=== PATIENT | female | born 1980 | race Caucasian/White ===

== ENCOUNTER 2017-11-13 12:59 | Emergency (ER) | payer BC ==
[2017-11-13] MEDS ORDERED: IBUPROFEN IV 600 MG in SODIUM CHLORIDE 0.9% 250 ML IV STA (13:45)
[2017-11-13] MEDS ORDERED: DIPHENOX-ATROP 2.5-0.025 MG 1 EACH TAB PO STA (13:46)
[2017-11-13] MEDS ORDERED: ONDANSETRON 4 MG/2 ML VIAL IVP STA (13:46)
[2017-11-13] MEDS ORDERED: SODIUM CHLORIDE 0.9% 1,000 ML IV ONE (13:47)
--- NOTE | 2017-11-13 13:52 | ED ---
General Adult HPI - General Chief complaint: Fever Stated complaint: Fever Time Seen by Provider: 11/13/17 13:00 Source: patient, RN notes reviewed Mode of arrival: wheelchair Limitations: no limitations - History of Present Illness Initial comments: This is a 37-year-old female presents emergency department stating that this morning at 7:00 she went to work became nauseated went home and started vomiting and has been having diarrhea ever since. Patient states she continues to be nauseous. Patient states she felt warm so she took Tylenol Motrin at home she took Motrin at 9:00 and Tylenol at 12:00. Patient denies any shortness of breath or difficulty breathing. Patient denies any chest pain or palpitations. Patient denies any specific area of abdominal. Patient denies any dysuria hematuria urinary frequency. - Related Data Home Medications Medication Instructions Recorded Confirmed Acetaminophen Tab [Tylenol Tab] 650 mg PO Q6H PRN 11/13/17 11/13/17 Cyclobenzaprine [Flexeril] 10 mg PO TID PRN 11/13/17 11/13/17 HYDROcodone/APAP 7.5-325MG [[place] 0.5 - 1 tab PO DAILY PRN 11/13/17 11/13/17 7.5-325] Ibuprofen [Motrin] 600 mg PO Q8HR PRN 11/13/17 11/13/17 Allergies Allergy/AdvReac Type Severity Reaction Status Date / Time No Known Allergies Allergy Verified 11/13/17 13:35 Review of Systems ROS Statement: Those systems with pertinent positive or pertinent negative responses have been documented in the HPI. ROS Other: All systems not noted in ROS Statement are negative. Past Medical History Past Medical History: Hypertension History of Any Multi-Drug Resistant Organisms: None Reported Past Surgical History: Bariatric Surgery Additional Past Surgical History / Comment(s): gastric sleeve 2013 Past Psychological History: No Psychological Hx Reported Smoking Status: Never smoker Past Alcohol Use History: None Reported Past Drug Use History: None Reported General Exam - General Exam Comments Initial Comments: GENERAL: Patient is well-developed and well-nourished. Patient is nontoxic and well- hydrated and is in mild distress. ENT: Neck is soft and supple. No significant lymphadenopathy is noted. Oropharynx is clear. Moist mucous membranes. Neck has full range of motion without eliciting any pain. EYES: The sclera were anicteric and conjunctiva were pink and moist. Extraocular movements were intact and pupils were equal round and reactive to light. Eyelids were unremarkable. PULMONARY: Unlabored respirations. Good breath sounds bilaterally. No audible rales rhonchi or wheezing was noted. CARDIOVASCULAR: There is a regular rate and rhythm without any murmurs gallops or rubs. ABDOMEN: Soft and nontender with normal bowel sounds. No palpable organomegaly was noted. There is no palpable pulsatile mass. SKIN: Skin is clear with no lesions or rashes and otherwise unremarkable. NEUROLOGIC: Patient is alert and oriented x3. Cranial nerves II through XII are grossly intact. Motor and sensory are also intact. Normal speech, volume and content. Symmetrical smile. MUSCULOSKELETAL: Normal extremities with adequate strength and full range of motion. No lower extremity swelling or edema. No calf tenderness. LYMPHATICS: No significant lymphadenopathy is noted PSYCHIATRIC: Normal psychiatric evaluation. Limitations: no limitations Course Vital Signs 11/13/17 13:05 Temperature 101 F H Pulse Rate 120 H Respiratory 20 Rate Blood Pressure 161/81 O2 Sat by Pulse 94 L Oximetry Medical Decision Making - Medical Decision Making I went back into the room to reevaluate the patient patient stated she was no longer nauseous and had no more diarrhea. Patient states she felt much better had no abdominal pain at this time and she was requesting to go home. Patient was given a liter of fluid and Zofran and Lomotil. - Lab Data Result diagrams: 11/13/17 13:44 11/13/17 13:44 Lab Results 11/13/17 11/13/17 11/13/17 Range/Units 13:44 13:44 14:30 WBC 9.3 (3.8-10.6) k/uL RBC 4.96 (3.80-5.40) m/uL Hgb 13.8 (11.4-16.0) gm/dL Hct 41.1 (34.0-46.0) % MCV 82.9 (80.0-100.0) fL MCH 27.8 (25.0-35.0) pg MCHC 33.6 (31.0-37.0) g/dL RDW 14.0 (11.5-15.5) % Plt Count 250 (150-450) k/uL Neutrophils % 92 % Lymphocytes % 3 % Monocytes % 3 % Eosinophils % 2 % Basophils % 0 % Neutrophils # 8.6 H (1.3-7.7) k/uL Lymphocytes # 0.2 L (1.0-4.8) k/uL Monocytes # 0.2 (0-1.0) k/uL Eosinophils # 0.2 (0-0.7) k/uL Basophils # 0.0 (0-0.2) k/uL Sodium 138 (137-145) mmol/L Potassium 4.2 (3.5-5.1) mmol/L Chloride 102 (98-107) mmol/L Carbon Dioxide 24 (22-30) mmol/L Anion Gap 12 mmol/L BUN 14 (7-17) mg/dL Creatinine 0.50 L (0.52-1.04) mg/dL Est GFR (CKD-EPI)AfAm >90 (>60 ml/min/1.73 sqM) Est GFR (CKD-EPI)NonAf >90 (>60 ml/min/1.73 sqM) Glucose 124 H (74-99) mg/dL Calcium 8.9 (8.4-10.2) mg/dL Total Bilirubin 0.7 (0.2-1.3) mg/dL AST 25 (14-36) U/L ALT 30 (9-52) U/L Alkaline Phosphatase 78 (38-126) U/L Total Protein 7.0 (6.3-8.2) g/dL Albumin 3.9 (3.5-5.0) g/dL Influenza Type A RNA Not Detected (Not Detectd) Influenza Type B (PCR) Not Detected (Not Detectd) Disposition Clinical Impression: Gastroenteritis Disposition: HOME SELF-CARE Instructions: Gastroenteritis (ED) Referrals: Patrick Fitzgerald MD [Primary Care Provider] - 1-2 days Time of Disposition: 15:39
[2017-11-13 14:08] LABS: Basophils % (A) 0 %; Eosinophils # (A) 0.2 k/uL (0-0.7); Eosinophils % (A) 2 %; HCT 41.1 % (34.0-46.0); HGB 13.8 gm/dL (11.4-16.0); Lymphocytes # (A) 0.2 k/uL (1.0-4.8); Lymphocytes % (A) 3 %; MCH 27.8 pg (25.0-35.0); MCHC 33.6 g/dL (31.0-37.0); MCV 82.9 fL (80.0-100.0); Mean Platelet Volume 6.9; Monocytes # (A) 0.2 k/uL (0-1.0); Monocytes % (A) 3 %; Neutrophils # (A) 8.6 k/uL (1.3-7.7); Neutrophils % (A) 92 %; Platelet Count 250 k/uL (150-450); RBC 4.96 m/uL (3.80-5.40); WBC 9.3 k/uL (3.8-10.6)
[2017-11-13 14:17] LABS: ALT 30 U/L (9-52); AST 25 U/L (14-36); Albumin 3.9 g/dL (3.5-5.0); Alkaline Phosphatase 78 U/L (38-126); Anion Gap 12 mmol/L; Blood Urea Nitrogen 14 mg/dL (7-17); Calcium 8.9 mg/dL (8.4-10.2); Carbon Dioxide 24 mmol/L (22-30); Chloride 102 mmol/L (98-107); Glucose 124 mg/dL (74-99); Potassium 4.2 mmol/L (3.5-5.1); Sodium 138 mmol/L (137-145); Total Bilirubin 0.7 mg/dL (0.2-1.3)
[2017-11-13] MEDS ORDERED: IBUPROFEN 600 MG TAB PO STA (14:18)
[2017-11-13] MEDS ORDERED: ONDANSETRON 4 MG ODT STARTER PACK 2 TAB BTL PO STA (15:40)
[2017-11-13 15:59] VITALS: BP 130/68; PULSE 95; RESP 18; TEMP 98.7
== END 2017-11-13 15:58 | disposition home or self-care (01) ==
LOC: EC 12:59
DX: K52.9 Noninfective gastroenteritis and colitis, unspecified (principal); Z98.84 Bariatric surgery status
CPT/HCPCS: 36415; 80053; 85025; 87502; 99283; 96374; 96361; J2405; S0119

== ENCOUNTER → 2019-01-20 | Outpatient (CLI) | payer BC ==
--- NOTE | 2019-01-20 18:01 | CONS ---
CONSULTATION DATE OF CONSULTATION: 01/20/2019 This patient is a 38-year-old lady who has been evaluated [facility] for obstructive sleep apnea-hypopnea syndrome. HISTORY OF PRESENT ILLNESS/SLEEP-WAKE EVALUATION: Patient was diagnosed with obstructive sleep apnea about 15 years ago in another institution. Since that time, she has been on treatment with CPAP. For those 15 years, the patient had significant changes of weight she had bariatric surgery and lost weight, but then she again gained weight. Fluctuation of her weight has been in the range of 70 to 90 pounds. At present she continues to use her CPAP equipment every night, but she still wakes up from sleep on CPAP and has snoring while using CPAP. Her sleep schedule on working days is from 10 or 11 p.m. to 6 a.m. On weekends it is from 11 or 12 midnight until 8 or 8:30 a.m. No problem with falling asleep. No TV in bedroom. She sleeps in different positions with, as already mentioned, loud snoring, awakenings from sleep up to 5 times with one episode of nocturia. She grinds her teeth and wakes up with a dry mouth. In the morning the patient wakes up tired with difficulties paying attention, falling asleep during the day, having problems with memory, concentration, irritability depression. [place] Sleepiness Scale is 5. PAST MEDICAL HISTORY: 1. Back problem. 2. Neck problem. 3. Asthma. 4. Sinus problems. 5. Sinus headache. 6. Some restriction of nasal breathing. PAST SURGICAL HISTORY: Gastric sleeve in 2014. MEDICATIONS: 1. Zanaflex. 2. Celebrex. 3. Ventolin. SOCIAL HISTORY: Positive for smoking in the past; quit about 20 years ago. Alcohol consumption occasional. FAMILY HISTORY: Hypertension, hyperlipidemia, arthritis, sleep apnea, cancer, diabetes, mental illness. REVIEW OF SYSTEMS: Multiple awakenings from sleep while on treatment with CPAP, tiredness and sleepiness during the day. Patient takes a nap at 3 p.m. No history of hypnagogic hallucinations, sleep paralysis or cataplexy. PHYSICAL EXAMINATION: GENERAL: A pleasant lady without distress. VITAL SIGNS: BP 195/74, HR 72, RR 16, height 5 feet 4 inches, weight 376 pounds. Body mass index 64.5, temperature 98.4, oxygen saturation at room air 97%. HEENT: PERRLA, EOMI. Evaluation of oropharynx showed tongue protrudes midline. Extremely low position of soft palate. Mallampati IV. Restriction of nasal breathing. NECK: Supple. No JVD. Thyroid is not palpable. Wide neck at 17 to 18 inches in circumference. LUNGS: Clear to percussion and to auscultation. Good air exchange. No wheezing or rhonchi. HEART: S1, S2 regular. No murmurs, gallops or rubs. ABDOMEN: Obese. EXTREMITIES: No clubbing or cyanosis. WESTERN PHILOSOPHY PROFESSOR: Awake, alert, and oriented X3. Cranial nerves 2 to 7 intact. There is no fasciculation or atrophy. noted. No focal deficits observed. IMPRESSION: 1. History of obstructive sleep apnea-hypopnea syndrome for 15 years. The patient is on treatment with CPAP but continues to have snoring and multiple awakenings from sleep, extremely low position of soft palate, Mallampati IV, wide neck, restriction of nasal breathing. 2. Morbid obesity with body mass index of 64.5. Fluctuation of weight significant after gastric sleeve, with losing weight and then increasing weight again. 3. Hypertension in the office. 4. Neck problems with pain. 5. Back problems. 6. History of asthma. 7. Status post gastric sleeve in 2014. 8. History of sinus problems with sinus headaches. PLAN: 1. Repeat CPAP titration for evaluation of effective CPAP pressure at the present time. Will fit the patient with a mask. Possibly patient will need a new CPAP unit. 2. Losing weight. 3. Preferable position during sleep on the side. 4. No driving if patient feels any sleepiness. 5. I will see patient for follow-up visit to explain results of testing and following plan. Thank you very much for referring this patient for consultation. Sincerely, Chele Galo MD, PhD, FAASM Diplomat of [employer] [employer] Marketing Support Manager of [facility] [place] MMODL / IJN: [id number] /
== END | disposition home or self-care (01) ==
LOC: SLEEP 15:04
PROVIDERS: ATTEND Internal Medicine
DX: G47.33 Obstructive sleep apnea (adult) (pediatric) (principal); E66.01 Morbid (severe) obesity due to excess calories; I10 Essential (primary) hypertension; M54.2 Cervicalgia; R51 Headache; Z68.44 Body mass index [BMI] 60.0-69.9, adult; Z87.891 Personal history of nicotine dependence; Z87.09 Personal history of other diseases of the respiratory system; Z99.89 Dependence on other enabling machines and devices; Z98.84 Bariatric surgery status; Z79.1 Long term (current) use of non-steroidal anti-inflammatories (NSAID); Z79.899 Other long term (current) drug therapy
CPT/HCPCS: 99211

== ENCOUNTER → 2019-04-18 | Outpatient (CLI) | payer BC ==
--- NOTE | 2019-04-18 13:25 | XR ---
EXAMINATION TYPE: XR chest 2V DATE OF EXAM: 04/18/2019 HISTORY: CHEST PAIN. REFERENCE: NONE. FINDINGS: The heart is mildly enlarged. There is bibasilar atelectasis. There are small, bilateral ef fusions. IMPRESSION: 1. MILD CARDIOMEGALY. 2. BIBASILAR ATELECTASIS. 3. SMALL, BILATERAL EFFUSIONS.
== END | disposition home or self-care (01) ==
LOC: RADXRMAIN 12:11
PROVIDERS: ATTEND Internal Medicine
DX: J98.11 Atelectasis (principal); J90 Pleural effusion, not elsewhere classified; I51.7 Cardiomegaly
CPT/HCPCS: 71046

== ENCOUNTER → 2019-05-01 | Outpatient (CLI) | payer BC ==
--- NOTE | 2019-05-02 08:35 | CT ---
EXAMINATION TYPE: CT chest w con DATE OF EXAM: 05/01/2019 COMPARISON: NONE HISTORY: Chest pain CT DLP: 1204.8 mGycm. Automated Exposure Control for Dose Reduction was Utilized. TECHNIQUE: CT scan of the thorax is performed following with IV Contrast, patient injected with 100 mL of Isovue 300. FINDINGS: LUNGS: There is a masslike consolidation within the right lower lobe measuring 4.9 x 2.9 x 0.3 cm. Th is abuts the hemidiaphragm and pleural surface and contained an internal focus of air within the repr esent an aerated small bronchus. There are few scattered surrounding groundglass opacities. No additi onal pulmonary mass or nodule is seen. Scattered areas of atelectasis are noted. MEDIASTINUM: There are no greater than 1 cm hilar or mediastinal lymph nodes. Heart is mildly enlarge d without pericardial effusion. OTHER: Patient is noted to be status post gastric sleeve. Partially visualized 8 mm nonobstructing le ft renal calculus and 3 mm left renal calculus. Mild degree hepatic steatosis is partially visualized . Spleen is enlarged measuring 14.7 cm in longitudinal dimension. Mild multilevel degenerative change s of the thoracic spine. IMPRESSION: 1. Masslike consolidation of the medial right lower lobe at the lung bases measuring up to 4.9 cm. In ternal focus of air may represent an air bronchogram and therefore this could relate to pneumonia or early cavitary pneumonia. Alternatively neoplastic pulmonary mass is possible. Consideration could be given to PET CT if no clinical symptoms of pneumonia. Follow-up CT after treatment is recommended to ensure resolution if there are clinical symptoms of pneumonia. 2. Incidentally noted splenomegaly, hepatic steatosis, and nonobstructing left renal calculi.
== END | disposition home or self-care (01) ==
LOC: RADCTMAIN 07:58
PROVIDERS: ATTEND Internal Medicine
DX: R07.9 Chest pain, unspecified (principal)
CPT/HCPCS: 71260; Q9967

== ENCOUNTER → 2019-05-06 | Outpatient (CLI) | payer BC ==
--- NOTE | 2019-05-06 19:36 | PN ---
PROGRESS NOTE DATE OF SERVICE: 05/06/2019 This patient is a 38-year-old lady who has been followed in Sleep Center for treatment of obstructive sleep apnea-hypopnea syndrome. Recently the patient had a home sleep apnea test which showed severe sleep apnea, and subsequently the patient received a CPAP unit for treatment of obstructive sleep apnea-hypopnea syndrome. Today the patient came in for follow-up visit. This is her first visit since receiving her new CPAP unit. She likes her CPAP machine. It works well. No snoring with the machine. No significant sleepiness during the day. [place] Sleepiness Scale is 5, which is normal. I checked her CPAP unit. Range of the pressure is 5 to 20, average pressure 11.5. Usage is 29/30 nights for more than 4 hours with average usage 7.0 hours per night. Average pressure is 11.5 cm of water. Leak 6 L/minute, which is perfect. Apnea-hypopnea index is only 0.8, which is absolutely normal and perfect. MEDICATIONS: 1. Zanaflex. 2. Celebrex. 3. Ventolin. PHYSICAL EXAMINATION: GENERAL: A pleasant patient in no distress. VITAL SIGNS: BP 163/94, HR 74, RR 16, weight 376 pounds, temperature 98.5, oxygen saturation at room air 96%. HEENT: PERRLA, EOMI. Evaluation of oropharynx showed tongue protrudes midline. Extremely low position of soft palate. Mallampati IV. NECK: Supple. No JVD. Thyroid is not palpable. LUNGS: Clear to percussion and to auscultation. Good air exchange. No wheezing or rhonchi. HEART: S1, S2 regular. No murmurs, gallops or rubs. ABDOMEN: Obese. EXTREMITIES: No clubbing or cyanosis. ARRANGER ASSEMBLER: Awake, alert, and oriented X3. Cranial nerves 2 to 7 intact. There is no fasciculation or atrophy. noted. No focal deficits observed. IMPRESSION: 1. Severe obstructive sleep apnea-hypopnea syndrome; apnea-hypopnea index 53.7 with oxygen desaturation to 76%. The patient demonstrated 100% compliance with treatment, normalization in respiration on CPAP, benefitting from treatment. 2. Obesity. 3. Hypertension in the office. 4. History of neck problems, hip pain. 5. History of back problems. 6. History of asthma. 7. Status post gastric sleeve in 2014. 8. History of sinus problems. PLAN: 1. Patient will continue to use CPAP equipment every night for the whole night. 2. Losing weight. 3. Sleep hygiene with regular time in bed for at least 7-1/2 to 8 hours. 4. No driving if feeling any sleepiness. 5. I will maintain all necessary prescriptions for CPAP supplies, including mask, tube, filters. 6. Follow-up visit in one year, or earlier if patient has any problems. Thank you very much for allowing me to participate in the management of your patient. Sincerely, Chele Galo MD, PhD, FAASM Diplomat of [place] [employer] [employer] Associate Professor Of [employer] of [facility] [place] MMODL / IJN: [id number] /
== END | disposition home or self-care (01) ==
LOC: SLEEP 16:21
PROVIDERS: ATTEND Internal Medicine
DX: G47.33 Obstructive sleep apnea (adult) (pediatric) (principal); I10 Essential (primary) hypertension; E66.9 Obesity, unspecified; Z79.899 Other long term (current) drug therapy; Z87.09 Personal history of other diseases of the respiratory system; Z98.84 Bariatric surgery status; Z87.39 Personal history of other diseases of the musculoskeletal system and connective tissue; Z99.89 Dependence on other enabling machines and devices

== ENCOUNTER → 2019-07-10 | Outpatient (CLI) | payer BC ==
--- NOTE | 2019-07-12 08:02 | CT ---
EXAMINATION TYPE: CT chest w con DATE OF EXAM: 07/10/2019 COMPARISON: May 01, 2019 HISTORY: Lobar pneumonia CT DLP: 852 mGycm Automated exposure control for dose reduction was used. CONTRAST: CT scan of the chest is performed with IV Contrast, patient injected with 100 ml mL of Isovue 300. FINDINGS: LUNGS: Right lower lobe infiltrate much improved with a small area of residual parenchymal scarring n oted. The lungs are otherwise clear. No nodule or mass seen. No pleural effusion. MEDIASTINUM: There are no greater than 1 cm hilar or mediastinal lymph nodes. No pericardial effusi on is seen. Thoracic aorta is of normal caliber. The heart is not enlarged. UPPER ABDOMEN: No significant abnormality appreciated. OTHER: No additional significant abnormality is seen. IMPRESSION: 1.Right lower lobe infiltrate much improved with a small area of residual parenchymal scarring noted.
== END | disposition home or self-care (01) ==
LOC: RADCTMAIN 09:39
PROVIDERS: ATTEND Internal Medicine Critical Care Medicine
DX: J18.1 Lobar pneumonia, unspecified organism (principal); R91.8 Other nonspecific abnormal finding of lung field
CPT/HCPCS: 71260; Q9967

== ENCOUNTER → 2023-03-03 | Outpatient (CLI) | payer BC ==
--- NOTE | 2023-03-03 15:59 | USB ---
Reason for Exam: Clinical finding. Patient History: Menarche at age 10. Progesterone for 6 months from age 17 until age 17. Risk Values: Yari 5 year model risk: 0.6%. NCI Lifetime model risk: 7.8%. Technique: Method: Targeted. Prior Study Comparison: 09/27/2021 Bilateral Screening Mammogram, [facility]. Findings: The area of palpable concern of both breasts, the axilla of both breasts and the retroareolar of both breasts were scanned. No suspicious cystic areas are evident. There is a hyperdense area measuring approximately 1.4 x 2.0 x 1.1 cm in the subcutaneous tissues 2:00 position 12 cm from the nipple. This correlates with the palpable region and may represent a small lipoma.. Overall Assessment: Benign, BI-RAD 2 Management: Screening Mammogram of both breasts in 1 year. A clinical breast exam by your physician is recommended on an annual basis and results should be correlated with mammographic findings. This exam should not preclude additional follow-up of suspicious palpable abnormalities. Results were given to the patient verbally at the time of exam. Electronically signed and approved by: Jaylan Alston D.O. Radiologis
--- NOTE | 2023-03-03 15:59 | MM ---
Reason for Exam: Clinical finding. Last mammogram was performed 1 year(s) and 6 month(s) ago. Indicated Problems: Lump or thickening of both sides for 2 Month(s). Patient History: Menarche at age 10. Progesterone for 6 months from age 17 until age 17. Risk Values: Yari 5 year model risk: 0.6%. NCI Lifetime model risk: 7.8%. Tissue Density: There are scattered fibroglandular densities. Findings: Analyzed By CAD. Abdomen appears symmetrical and stable. Chronic nodularity is present bilaterally. At the palpable abnormalities medial bilateral breasts, no underlying mammographic abnormality is evident. Ultrasound over these areas can be performed. No suspicious groups of microcalcifications, spiculated or lobular masses, architectural distortion or other secondary signs of malignancy are mammographically apparent. Overall Assessment: Incomplete: need additional imaging evaluation, BI-RAD 0 Management: Diagnostic Breast Ultrasound of both breasts. A negative mammogram report should not preclude additional follow up of suspicious palpable abnormalities. Patient should continue monthly self breast exam. A clinical breast exam by your physician is recommended on an annual basis and results should be correlated with mammographic findings. Electronically signed and approved by: Jaylan Alston D.O. Radiologis
== END | disposition home or self-care (01) ==
LOC: RADMAMWWP 14:22
PROVIDERS: ATTEND Family Medicine
DX: N63.10 Unspecified lump in the right breast, unspecified quadrant (principal)
CPT/HCPCS: 77062; 77066

== ENCOUNTER 2023-10-03 05:23 | Emergency (ER) | payer BC ==
[2023-10-03 05:44] VITALS: TEMP 98.7
--- NOTE | 2023-10-03 06:34 | ED ---
Abdominal Pain HPI - General Source: patient Mode of arrival: wheelchair Limitations: no limitations <Zoe Valle - Last Filed: 10/03/23 06:35> <Jaspal Dailey - Last Filed: 10/03/23 10:15> - General Chief Complaint: Abdominal Pain Stated Complaint: kidney stone Time Seen by Provider: 10/03/23 05:24 - History of Present Illness Initial Comments: Jovon is a pleasant 43-year-old female who presents to the emergency department today for evaluation of pain radiating from her left flank to her left pelvis. Patient reports pain began last night, over the past couple of hours it has been so severe she has had nausea and vomiting secondary to pain. Patient denies any change in her bowel or bladder habits. Last bowel movement was yesterday and was normal in color caliber and consistency. Patient denies any dysuria or obvious hematuria. Patient denies a history of kidney stones. Patient's only previous abdominal surgery is gastric sleeve years ago. Patient has no concern for sexually transmitted infections or as she is not sexually active. (Zoe Valle) - Related Data Home Medications Medication Instructions Recorded Confirmed Acetaminophen Tab [Tylenol Tab] 650 mg PO Q6H PRN 11/13/17 11/13/17 Cyclobenzaprine [Flexeril] 10 mg PO TID PRN 11/13/17 11/13/17 HYDROcodone/APAP 7.5-325MG [[place] 0.5 - 1 tab PO DAILY PRN 11/13/17 11/13/17 7.5-325] Ibuprofen [Motrin] 600 mg PO Q8HR PRN 11/13/17 11/13/17 Previous Rx's Medication Instructions Recorded Ketorolac [Toradol] 10 mg PO Q6HR PRN #15 tab 10/03/23 Metoclopramide HCl [Reglan] 10 mg PO Q6HR PRN #15 tablet 10/03/23 Allergies Allergy/AdvReac Type Severity Reaction Status Date / Time No Known Allergies Allergy Verified 10/03/23 05:33 Review of Systems ROS Other: All systems not noted in ROS Statement are negative. <Zoe Valle - Last Filed: 10/03/23 06:35> ROS Other: All systems not noted in ROS Statement are negative. <Jaspal Dailey - Last Filed: 10/03/23 10:15> ROS Statement: Those systems with pertinent positive or pertinent negative responses have been documented in the HPI. Past Medical History Past Medical History: Hypertension History of Any Multi-Drug Resistant Organisms: None Reported Past Surgical History: Bariatric Surgery Additional Past Surgical History / Comment(s): gastric sleeve 2014 Past Psychological History: Depression Smoking Status: Never smoker Past Alcohol Use History: None Reported Past Drug Use History: None Reported <Zoe Valle - Last Filed: 10/03/23 06:35> General Exam Limitations: no limitations General appearance: obese, other (appears uncomfortable) Eye exam: Present: PERRL Respiratory exam: Absent: respiratory distress Cardiovascular Exam: Present: regular rate GI/Abdominal exam: Present: soft. Absent: tenderness Rectal exam: Present: deferred Extremities exam: Present: normal capillary refill Neurological exam: Present: alert, oriented X3 Psychiatric exam: Present: normal affect, normal mood Skin exam: Present: warm, dry, intact <Zoe Valle - Last Filed: 10/03/23 06:35> Course Vital Signs 10/03/23 10/03/23 05:33 08:50 Temperature 98.7 F Pulse Rate 73 78 Respiratory 20 18 Rate Blood Pressure 155/80 172/93 O2 Sat by Pulse 96 97 Oximetry Medical Decision Making <Zoe Valle - Last Filed: 10/03/23 06:35> - Lab Data Result diagrams: 10/03/23 06:35 10/03/23 06:35 <Jaspal Dailey - Last Filed: 10/03/23 10:15> - Medical Decision Making Was pt. sent in by a medical professional or institution (, PA, MOLD REPAIR TECHNICIAN, urgent care, hospital, or care home...) When possible be specific @ -[No] Did you speak to anyone other than the patient for history (EMS, parent, family, police, friend...)? What history was obtained from this source @ -[No] Did you review nursing and triage notes (agree or disagree)? Why? @ -[I reviewed and agree with nursing and triage notes] Were old charts reviewed (outside hosp., previous admission, EMS record, old EKG, old radiological studies, urgent care reports/EKG's, care home records)? Report findings @ -[No old charts were reviewed] Differential Diagnosis (chest pain, altered mental status, abdominal pain women, abdominal pain men, vaginal bleeding, weakness, fever, dyspnea, syncope, headache, dizziness, GI bleed, back pain, seizure, CVA, palpatations, mental health)? @ -Differential Abdominal Pain Women: Appendicitis, Cholecystitis, diverticulosis, ischemic bowel, pancreatitis, hepatitis, UTI, gastroenteritis, AAA, incarcerated hernia, bowel obstruction, constipation, inflammatory bowel, hepatitis, peptic ulcer disease, splenic infarction, perforated viscus, vulvitis, ovarian torsion, PID, kidney stone, placenta abruption, this is not meant to be an all-inclusive list EKG interpreted by me (3pts min.). @ -[As above] X-rays interpreted by me (1pt min.). @ -[None done] CT interpreted by me (1pt min.). @ -[None done] U/S interpreted by me (1pt. min.). @ -[None done] What testing was considered but not performed or refused? (CT, X-rays, U/S, labs)? Why? @ -[None] What meds were considered but not given or refused? Why? @ -[None] Did you discuss the management of the patient with other professionals (professionals i.e. , PA, MOLD REPAIR TECHNICIAN, lab, RT, psych nurse, high school social studies teacher, tax representative, teacher, code enforcement officer, child support case officer)? Give summary @ -[No] Was smoking cessation discussed for >3mins.? @ -[No] Was critical care preformed (if so, how long)? @ -[No] Were there social determinants of health that impacted care today? How? (Homelessness, low income, unemployed, alcoholism, drug addiction, transportation, low edu. Level, literacy, decrease access to med. care, care home, rehab)? @ -[No] Was there de-escalation of care discussed even if they declined (Discuss DNR or withdrawal of care, Hospice)? DNR status @ -[No] What co-morbidities impacted this encounter? (DM, HTN, Smoking, COPD, CAD, Cancer, CVA, ARF, Chemo, Hep., AIDS, mental health diagnosis, sleep apnea, morbid obesity)? @ -[None] Was patient admitted / discharged? Hospital course, mention meds given and route, prescriptions, significant lab abnormalities, going to OR and other per tinent info. @ -Patient was seen and evaluated, history is obtained from the patient. Physical exam is limited by patient's body habitus, labs and CT imaging were obtained. Patient care was signed out to oncoming physician Dr. Dailey at 7am (Zoe Valle) Patient reevaluated by myself and still has discomfort. Patient provided Reglan and Toradol. Patient again reevaluated and feels much better. Patient is updated on results and need for follow-up. CT scan interpreted by myself shows left ureteral stone with hydro- Diagnosis: Ureterolithiasis, acute (Jaspal Dailey) - Lab Data Lab Results 10/03/23 10/03/23 10/03/23 Range/Units 06:35 06:35 09:08 WBC 12.1 H (3.8-10.6) k/uL RBC 5.07 (3.80-5.40) m/uL Hgb 15.0 (11.4-16.0) gm/dL Hct 44.1 (34.0-46.0) % MCV 86.9 (80.0-100.0) fL MCH 29.5 (25.0-35.0) pg MCHC 34.0 (31.0-37.0) g/dL RDW 13.7 (11.5-15.5) % Plt Count 279 (150-450) k/uL MPV 7.1 Neutrophils % 78 % Lymphocytes % 15 % Monocytes % 4 % Eosinophils % 2 % Basophils % 0 % Neutrophils # 9.4 H (1.3-7.7) k/uL Lymphocytes # 1.8 (1.0-4.8) k/uL Monocytes # 0.5 (0-1.0) k/uL Eosinophils # 0.2 (0-0.7) k/uL Basophils # 0.1 (0-0.2) k/uL Sodium 137 (137-145) mmol/L Potassium 4.0 (3.5-5.1) mmol/L Chloride 103 (98-107) mmol/L Carbon Dioxide 26 (22-30) mmol/L Anion Gap 8 mmol/L BUN 18 H (7-17) mg/dL Creatinine 0.65 (0.52-1.04) mg/dL Est GFR (CKD-EPI)AfAm >90 (>60 ml/min/1.73 sqM) Est GFR (CKD-EPI)NonAf >90 (>60 ml/min/1.73 sqM) Glucose 155 H (74-99) mg/dL Calcium 9.6 (8.4-10.2) mg/dL Total Bilirubin 0.6 (0.2-1.3) mg/dL AST 33 (14-36) U/L ALT 33 (4-34) U/L Alkaline Phosphatase 84 (38-126) U/L Total Protein 7.7 (6.3-8.2) g/dL Albumin 4.4 (3.5-5.0) g/dL Urine Color Yellow Urine Appearance Cloudy H (Clear) Urine pH 5.5 (5.0-8.0) Ur Specific [place] 1.027 (1.001-1.035) Urine Protein Trace H (Negative) Urine Glucose (UA) Negative (Negative) Urine Ketones Negative (Negative) Urine Blood Large H (Negative) Urine Nitrite Negative (Negative) Urine Bilirubin Negative (Negative) Urine Urobilinogen <2.0 (<2.0) mg/dL Ur Leukocyte Esterase Negative (Negative) Urine RBC 63 H (0-5) /hpf Urine WBC 3 (0-5) /hpf Ur Squamous Epith Cells 3 (0-4) /hpf Urine Bacteria Rare H (None) /hpf Urine Mucus Rare H (None) /hpf Disposition <Zoe Valle - Last Filed: 10/03/23 06:35> Is patient prescribed a controlled substance at d/c from ED?: No Time of Disposition: 10:15 <Jaspal Dailey - Last Filed: 10/03/23 10:15> Clinical Impression: Ureterolithiasis Disposition: HOME SELF-CARE Condition: Stable Instructions (If sedation given, give patient instructions): Kidney Stones (ED) Additional Instructions: Please do follow-up with primary care physician in the next day or 2 for recheck . Return for increased pain, fever, vomiting, worsening symptoms or other concerns. Prescriptions have been sent to pharmacy. Prescriptions: Metoclopramide HCl [Reglan] 10 mg PO Q6HR PRN #15 tablet PRN Reason: Nausea Ketorolac [Toradol] 10 mg PO Q6HR PRN #15 tab PRN Reason: Pain Referrals: Anderson Parker DO [Primary Care Provider] - 1-2 days Jorge Mann MD [STAFF PHYSICIAN] - 1-2 days
[2023-10-03] MEDS: ONDANSETRON 4 MG/2 ML VIAL IVP STA (06:41)
[2023-10-03] MEDS: MORPHINE SULFATE 4 MG/ML SYRINGE IVP STA (06:42)
[2023-10-03 06:55] LABS: Basophils # (A) 0.1 k/uL (0-0.2); Basophils % (A) 0 %; Eosinophils # (A) 0.2 k/uL (0-0.7); Eosinophils % (A) 2 %; HCT 44.1 % (34.0-46.0); Lymphocytes # (A) 1.8 k/uL (1.0-4.8); Lymphocytes % (A) 15 %; MCH 29.5 pg (25.0-35.0); MCV 86.9 fL (80.0-100.0); Mean Platelet Volume 7.1; Monocytes # (A) 0.5 k/uL (0-1.0); Monocytes % (A) 4 %; Neutrophils # (A) 9.4 k/uL (1.3-7.7); Neutrophils % (A) 78 %; Platelet Count 279 k/uL (150-450); RBC 5.07 m/uL (3.80-5.40); RDW 13.7 % (11.5-15.5); WBC 12.1 k/uL (3.8-10.6)
[2023-10-03] MEDS: SODIUM CHLORIDE 0.9% 1,000 ML IV STA ×2 (07:01→08:51)
[2023-10-03 07:06] LABS: ALT 33 U/L (4-34); AST 33 U/L (14-36); African American GFR (CKD) >90 (>60 ml/min/1.73 sqM); Albumin 4.4 g/dL (3.5-5.0); Alkaline Phosphatase 84 U/L (38-126); Anion Gap 8 mmol/L; Blood Urea Nitrogen 18 mg/dL (7-17); Calcium 9.6 mg/dL (8.4-10.2); Carbon Dioxide 26 mmol/L (22-30); Chloride 103 mmol/L (98-107); Glucose 155 mg/dL (74-99); Non-African American GFR(CKD) >90 (>60 ml/min/1.73 sqM); Sodium 137 mmol/L (137-145); Total Bilirubin 0.6 mg/dL (0.2-1.3); Total Protein 7.7 g/dL (6.3-8.2)
--- NOTE | 2023-10-03 07:43 | CT ---
EXAMINATION TYPE: CT abdomen pelvis wo con DATE OF EXAM: 10/03/2023 COMPARISON: None HISTORY: Lt flank pain CT DLP: 2745 mGycm Examination of the solid and hollow viscera is limited given the lack of contrast. FINDINGS: LUNG BASES: No evidence for nodule. No evidence for infiltrate. LIVER/GB: Layering small gallstones. No space-occupying hepatic lesion. PANCREAS: No pancreatic mass identified. No inflammatory process seen. SPLEEN: No evidence for splenomegaly. No intrasplenic lesions seen. ADRENALS: No adrenal nodules identified. No evidence for thickening. KIDNEYS: 3 mm left UVJ calculus. Moderate left-sided hydronephrosis. Additional multiple left-sided c alculi seen measuring up to 2.2 cm. Left renal edema and perinephric stranding. The right kidney is u nremarkable. BOWEL: Appendix has a normal appearance. No evidence of bowel obstruction. No inflammatory process. Lymph nodes: No evidence for adenopathy greater than 1 cm. Abdominal aorta: Atheromatous changes seen. No evidence for aneurysm. Genital organs: Mild fullness of the endometrium could be related to patient's cycle. Correlate clini lo. No uterine mass. No ovarian masses. Other: No significant abnormality. IMPRESSION: 3 mm left UVJ calculus. Moderate left-sided hydronephrosis. Additional multiple left-sided calculi se en measuring up to 2.2 cm. Left renal edema and perinephric stranding.
[2023-10-03] MEDS: KETOROLAC 15 MG/ML 1 ML VIAL IVP STA (08:51)
[2023-10-03] MEDS: METOCLOPRAMIDE 5 MG/ML 2 ML VIAL IVP STA (08:56)
[2023-10-03 09:13] VITALS: BP 172/93; PULSE 78; RESP 18
[2023-10-03 09:25] LABS: Appearance,Urine Cloudy (Clear); Bacteria,Urine Rare /hpf; Bilirubin,Urine Negative (Negative); Blood,Urine Large (Negative); Color,Urine Yellow; Glucose,Urine (UA) Negative (Negative); Ketones,Urine Negative (Negative); Leukocyte Esterase,Urine Negative (Negative); Mucus,Urine Rare /hpf; Nitrite,Urine Negative (Negative); PH, Urine 5.5 (5.0-8.0); Protein,Urine Trace (Negative); RBC,Urine 63 /hpf (0-5); Specific Gravity,Urine 1.027 (1.001-1.035); Squamous Epithelial Cell,Urine 3 /hpf (0-4); Urobilinogen,Urine <2.0 mg/dL (<2.0); WBC,Urine 3 /hpf (0-5)
== END 2023-10-03 11:05 | disposition home or self-care (01) ==
LOC: EC 05:23
DX: N13.2 Hydronephrosis with renal and ureteral calculous obstruction (principal); I10 Essential (primary) hypertension; Z86.59 Personal history of other mental and behavioral disorders; Z79.899 Other long term (current) drug therapy
CPT/HCPCS: 36415; 80053; 85025; 81001; 74176; 99284; 96374; 96375 ×3; 96361 ×3; J2270; J2765; J2405; J1885

== ENCOUNTER → 2023-11-20 | Outpatient (CLI) | payer BC ==
[2023-11-20 18:44] LABS: Basophils # (A) 0.04 X 10*3/uL (0.00-0.10); Basophils % (A) 0.4 %; Eosinophils # (A) 0.27 X 10*3/uL (0.04-0.35); Eosinophils % (A) 2.5 %; HCT 45.1 % (37.2-46.3); HGB 14.9 g/dL (12.0-15.0); Lymphocytes # (A) 3.73 X 10*3/uL (0.90-5.00); Lymphocytes % (A) 34.9 %; MCH 29.3 pg (27.0-32.0); MCV 88.6 FL (80.0-97.0); Mean Platelet Volume 9.2 FL (9.5-12.2); Monocytes % (A) 6.5 %; NRBC Per 100 WBC 0 X 10*3/uL (0.00-0.01); Neutrophils # (A) 5.87 X 10*3/uL (1.80-7.70); Neutrophils % (A) 54.9 %; Platelet Count 320 X 10*3/uL (140-440); RBC 5.09 X 10*6/uL (4.10-5.20); RDW 13.5 % (11.5-14.5)
[2023-11-20 18:49] LABS: BUN/Creat Ratio 21.83 Ratio (12.00-20.00); Blood Urea Nitrogen 13.1 mg/dL (9.0-27.0); Calcium 9.7 mg/dL (8.7-10.3); Carbon Dioxide 31.9 mmol/L (21.6-31.8); Chloride 97 mmol/L (96-109); Glucose 99 mg/dL (70-110); Potassium 4.1 mmol/L (3.5-5.5); Sodium 140 mmol/L (135-145)
[2023-11-20 20:11] LABS: Appearance,Urine Clear (Clear); Bilirubin,Urine Negative (Negative); Blood,Urine Negative (Negative); Color,Urine Yellow (Yellow); Ketones,Urine Negative (Negative); Nitrite,Urine Negative (Negative); PH, Urine 5.5; Specific Gravity,Urine 1.011 (1.001-1.030); Urobilinogen,Urine 0.2 E.U./DL
[2023-11-20 20:19] LABS: Bacteria,Urine 2+ (None Seen)
== END | disposition home or self-care (01) ==
LOC: LABPAT 11:30
PROVIDERS: ATTEND Urology
DX: Z01.812 Encounter for preprocedural laboratory examination (principal); N20.0 Calculus of kidney
CPT/HCPCS: 36415; 80048; 81001; 85025; 87086

== ENCOUNTER → 2023-11-22 | Outpatient (CLI) | payer BC | END | disposition home or self-care (01) | LOC: LABPAT 11:00 | PROVIDERS: ATTEND Urology | DX: Z01.818 Encounter for other preprocedural examination (principal) | CPT/HCPCS: 93005 ==

== ENCOUNTER 2023-11-25 07:10 | Day surgery (SDC) | payer BC ==
[2023-11-21 15:31] VITALS: BMI 66.9
[~2023-11-25 07:10] MED LIST: LIDOCAINE 1% (10MG/ML) FOR IV START INTRADERMA PRN; droPERidol 5 MG/2 ML VIAL IVP ONE
[2023-11-25] MEDS: LACTATED RINGERS 1,000 ML IV SCH (08:31)
[2023-11-25] MEDS: DEXAMETHASONE SOD PHOSPHATE 4 MG/ML 1 ML VIAL IV ONE (08:31)
[2023-11-25] MEDS: ONDANSETRON 4 MG/2 ML VIAL IVP ONE (08:32)
[2023-11-25 08:44] LABS: Glucose,Whole Blood 133 mg/dL (70-110)
--- NOTE | 2023-11-25 08:49 | P.HPIHPCON ---
History of Present Illness H&P Date: 11/25/23 Chief Complaint: Left renal stone This is a 42-year-old female with history of elevated left-sided UVJ stone which she has past, also evidence of a 2.2 cm stone that extends from the left lower pole into the renal pelvis. Options of PCNL, ureteroscopy, ESWL, and observation was discussed with her in detail. Risk and benefit and rationale of each approach were discussed. She agreed to proceed with a left-sided ureteroscopy with holmium laser, aware of the risk which include but not limited to bleeding, infection, injury to the ureter. Risk of anesthesia was also discussed. Discussed given the significant stone burden potential this may need to be a staged procedure. Discussed also potential of having residual stone. She understood all the risk and agreed to proceed Consent for Procedure: I have explained the operation/procedure to the patient, including the risks, benefits, side effects, alternative therapies (including not receiving the proposed treatment or service), the likelihood of the patient achieving his/her goals, and potential recuperation problems for the procedure/sedation/analgesia, as well as any blood products, if indicated. I also explained to the patient the risks, benefits and side effects of the alternatives, as well as the risks related to not receiving the proposed procedure, care, treatment, or services. Past Medical History Past Medical History: Hypertension Additional Past Medical History / Comment(s): KIDNEY STONES, PRE DIABETIC, USES C-PAP MACHINE, CHRONIC PAIN History of Any Multi-Drug Resistant Organisms: None Reported Past Surgical History: Bariatric Surgery Additional Past Surgical History / Comment(s): gastric sleeve 2013 Past Anesthesia/Blood Transfusion Reactions: Previous Problems w/ Anesthesia Additional Past Anesthesia/Blood Transfusion Reaction / Comment(s): HEART RATE EXTREMELY LOW POST GASTRIC BYPASS-WAS IN ICU FOR 4 DAYS Smoking Status: Never smoker - Past Family History Mother Family Medical History: Cancer Father Family Medical History: Cancer Medications and Allergies Home Medications Medication Instructions Recorded Confirmed Type ALPRAZolam [Xanax] 0.5 mg PO DAILY PRN 11/21/23 11/25/23 History Albuterol Inhaler [Ventolin Hfa 1 - 2 puff INHALATION Q6H PRN 11/21/23 11/25/23 History Inhaler] Celecoxib [CeleBREX] 200 mg PO DAILY 11/21/23 11/25/23 History Losartan/Hydrochlorothiazide 1 each PO DAILY 11/21/23 11/25/23 History [Hyzaar 100-25 Tablet] Vilazodone HCl [Viibryd] 20 mg PO DAILY 11/21/23 11/25/23 History metFORMIN HCL ER [Glucophage XR] 500 mg PO W/SUPPER 11/21/23 11/25/23 History tiZANidine HCL [Zanaflex] 4 mg PO DAILY PRN 11/21/23 11/25/23 History Loratadine-Pseudoeph 10-240 mg 1 tab PO DAILY 11/25/23 11/25/23 History [Claritin-D 24 Hour] cycloSPORINE 0.05% OPHTH SOLN 1 applicator BOTH EYES Q12H PRN 11/25/23 11/25/23 History [Restasis] Allergies Allergy/AdvReac Type Severity Reaction Status Date / Time perfume Allergy Dyspnea Verified 11/25/23 08:45 adhesive tape AdvReac Rash/Hives Verified 11/25/23 08:45 Surgical - Exam Vital Signs Temp Pulse Resp BP Pulse Ox 97.0 F L 94 20 182/80 96 11/25/23 08:25 11/25/23 08:25 11/25/23 08:25 11/25/23 08:25 11/25/23 08:25 - General no distress, no pain - Eyes normal ocular movement, no pale - ENT normal nares, normal mucosa - Respiratory normal expansion - Abdomen Abdomen: soft, non tender Results - Labs Abnormal Lab Results - Last 24 Hours (Table) 11/25/23 Range/Units 08:43 POC Glucose (mg/dL) 133 H (70-110) mg/dL Assessment and Plan Assessment: OR for left-sided ureteroscopy, manage lithotripsy, stone basketing and stent insertion
[2023-11-25] MEDS: MIDAZOLAM 2 MG/2 ML VIAL IVP ONE (08:50)
[2023-11-25] MEDS ORDERED: SUCCINYLCHOLINE CHLORIDE 200 MG/10 ML VIAL IV ONE (09:16)
[2023-11-25] MEDS ORDERED: PROPOFOL 10 MG/ML 20 ML VIAL IV ONE (09:16)
[2023-11-25] MEDS ORDERED: fentaNYL (PF) 50 MCG/ML 2 ML AMP ONE (09:16)
[2023-11-25] MEDS ORDERED: LIDOCAINE 1% INJ 10MG/ML (20 ML MDV) ONE (09:16)
[2023-11-25] MEDS: ceFAZolin 3 GM in SODIUM CHLORIDE 0.9% 100 ML IVPB PRN (09:22)
[2023-11-25] MEDS: IOPAMIDOL-370 100ML BTL MISCELLANE ONE (09:55)
--- NOTE | 2023-11-25 09:59 | XR ---
EXAMINATION TYPE: XR KUB DATE OF EXAM: 11/25/2023 7:40 AM CLINICAL INDICATION:Female, 43 years old with history of Left Renal Stone N20.0; [facility] COMPARISON: CT 10/03/2023 TECHNIQUE: KUB was obtained. FINDINGS: Calculus or calculus cluster measuring up to 19 mm projects over the lower pole left kidney, similar to previous CT. No other sizable calculi can be seen projecting over the kidneys or anticipated cours e of the ureters or bladder. Unremarkable bowel gas pattern. No acute bony pathology. Mild degenerative changes. IMPRESSION: A 19 mm calculus lower pole left kidney.
[2023-11-25 10:30] LABS: Glucose,Whole Blood 161 mg/dL (70-110)
[2023-11-25 10:37] VITALS: TEMP 98.6
--- NOTE | 2023-11-25 10:49 | P.OP ---
Date of Procedure: 11/25/23 Preoperative Diagnosis: Left renal stone Postoperative Diagnosis: Same Procedure(s) Performed: Cystoscopy, left ureteroscopy, ureteral balloon dilation, retrograde pyelogram and stent insertion Implants: 6 Barb[place] by 26 cm stent in the left ureter Anesthesia: CAROLA Surgeon: Erik Yung Estimated Blood Loss (ml): 5 Pathology: none sent Condition: stable Disposition: PACU Indications for Procedure: This is a 42-year-old female with history of elevated left-sided UVJ stone which she has past, also evidence of a 2.2 cm stone that extends from the left lower pole into the renal pelvis. Options of PCNL, ureteroscopy, ESWL, and observation was discussed with her in detail. Risk and benefit and rationale of each approach were discussed. She agreed to proceed with a left-sided ureteroscopy with holmium laser, aware of the risk which include but not limited to bleeding, infection, injury to the ureter. Risk of anesthesia was also discussed. Discussed given the significant stone burden potential this may need to be a staged procedure. Discussed also potential of having residual stone. She understood all the risk and agreed to proceed Operative Findings: Multiple areas of narrowing along the left ureter Description of Procedure: Patient brought to the operating room, general anesthesia was induced. She was prepped and draped in sterile fashion and placed in dorsolithotomy position. Cystoscopy fitted with a 21 Barb[place] sheath was inserted per urethra cystoscopy was performed which showed no abnormality within the bladder. Attention was then carried to the left ureteral orifice, the left ureter orifice was intubated with a sensor wire, the wire was advanced under fluoroscopy into the kidney. Next a 11-13 Barb[place] access sheath over the wire resistance was met at the distal ureter. Next the ureteral balloon dilator was passed over the wire, and the area of the distal ureter was dilated to 15 Barb[place] under fluoroscopy. At this time the access sheath was readvanced over the wire, I was able to advance the narrowed area and at this point a second narrowed area was encountered in the mid ureter. Next a ureteral balloon dilator was passed over the wire and the mid ureter was dilated on fluoroscopy to 15 Barb[place]. At this time the access sheath was readvanced further past the area of narrowing and into the proximal ureter. At this time the flexible ureteroscope was inserted through the access sheath, at this point there was lara ureteral narrowing of the proximal ureter, I was not able to advance the scope into the kidney, given the multiple narrowed area decision was made to proceed with a stent insertion. Retrograde pyelogram was performed to better delineate the collecting system. Next a sensor wire was advanced through the ureteroscope and the ureteroscope was withdrawn with the wire in place, pullback ureteroscopy was performed which showed no injury to the ureter but there was a ureteral edema throughout the ureter. At this time a ureteral stent was passed over the wire, the proximal curl was visualized on fluoroscopy and the distal curl was visualized using the cystoscope. The bladder was emptied at the end of the case. Patient tolerated procedure well was taken recovery in stable condition
[2023-11-25] MEDS: KETOROLAC 15 MG/ML 1 ML VIAL IVP ONE (10:50)
[2023-11-25] MEDS: HYDROmorphone 0.5 MG/0.5 ML SYRINGE IVP PRN (10:50)
[2023-11-25 11:13] VITALS: RESP 16
--- NOTE | 2023-11-25 12:11 | FL ---
EXAMINATION TYPE: FL urography retrograde Intraoperative/procedural fluoroscopic services were provid ed. Total fluoroscopy time is 2.11 minutes with a total of 8 submitted images to PACS. Please see the operative/procedural note for further details. DAP: 125 Gycm2
[2023-11-25 12:28] VITALS: BP 146/72; PULSE 82
== END 2023-11-25 12:41 | disposition home or self-care (01) ==
LOC: OR 07:10
PROVIDERS: ATTEND Urology
DX: N20.0 Calculus of kidney (principal); G89.18 Other acute postprocedural pain; I10 Essential (primary) hypertension; G47.33 Obstructive sleep apnea (adult) (pediatric); E11.9 Type 2 diabetes mellitus without complications; E66.01 Morbid (severe) obesity due to excess calories; Z68.20 Body mass index [BMI] 20.0-20.9, adult; Z79.899 Other long term (current) drug therapy; Z88.8 Allergy status to other drugs, medicaments and biological substances; Z91.048 Other nonmedicinal substance allergy status; G89.29 Other chronic pain; Z98.890 Other specified postprocedural states; Z79.84 Long term (current) use of oral hypoglycemic drugs
CPT/HCPCS: 81025; 74420; 74018; 52332; 52351; C2625; C1769 ×2; J2250; J0330; J1100; J0690; J2405; J2001; J3010; J1885; J2704; J1170; Q9967

== ENCOUNTER → 2023-12-15 | Outpatient (CLI) | payer BC ==
[2023-12-15 15:31] LABS: HCT 42.9 % (37.2-46.3); HGB 14.2 g/dL (12.0-15.0); MCH 28.7 pg (27.0-32.0); MCHC 33.1 g/dL (32.0-37.0); MCV 86.8 FL (80.0-97.0); Mean Platelet Volume 9.3 FL (9.5-12.2); NRBC Per 100 WBC 0 X 10*3/uL (0.00-0.01); Platelet Count 293 X 10*3/uL (140-440); RBC 4.94 X 10*6/uL (4.10-5.20); RDW 13.7 % (11.5-14.5); WBC 10.79 X 10*3/uL (4.50-10.00)
[2023-12-15 16:08] LABS: BUN/Creat Ratio 20.29 Ratio (12.00-20.00); Blood Urea Nitrogen 14.2 mg/dL (9.0-27.0); Carbon Dioxide 24.3 mmol/L (21.6-31.8); Chloride 98 mmol/L (96-109); Glucose 175 mg/dL (70-110); Potassium 3.9 mmol/L (3.5-5.5); Sodium 138 mmol/L (135-145)
[2023-12-15 16:09] LABS: Calcium 9.5 mg/dL (8.7-10.3)
[2023-12-15 17:31] LABS: Appearance,Urine Cloudy (Clear); Bilirubin,Urine Negative (Negative); Blood,Urine Large (Negative); Color,Urine Yellow (Yellow); Ketones,Urine Negative (Negative); Nitrite,Urine Negative (Negative); Specific Gravity,Urine 1.022 (1.001-1.030); Urobilinogen,Urine 0.2 E.U./DL
[2023-12-15 23:11] LABS: Bacteria,Urine 1+ (None Seen); Uric Acid Crystals,Urine Present (None Seen)
== END | disposition home or self-care (01) ==
LOC: LABWHC1 10:40
PROVIDERS: ATTEND Urology
DX: Z01.812 Encounter for preprocedural laboratory examination (principal); N20.0 Calculus of kidney
CPT/HCPCS: 80048; 81001; 85027; 87086

== ENCOUNTER 2023-12-23 10:09 | Day surgery (SDC) | payer BC ==
--- NOTE | 2023-12-23 09:05 | P.HPIHPCON ---
History of Present Illness H&P Date: 12/23/23 Chief Complaint: Left-sided renal stone This is a 43-year-old female with history of a 2 cm left-sided lower pole renal stone, she is symptomatic from her stone. Discussed with her the most definitive surgery to address her stone would be a PCNL. Discussed given her morbid obesity she is at a higher risk of complications. Discussed the alternative of doing staged ureteroscopy. She did undergo attempted ureteroscopy on November 24, at that time I encountered a narrowing in the ureter and proceeded with stent placement. She presents today for left-sided ureteroscopy with holmium laser. Discussed risk of surgery which includes but not limited to bleeding, infection, injury to the ureter. Risk of anesthesia was also discussed. She understood all the risk and agreed to proceed Consent for Procedure: I have explained the operation/procedure to the patient, including the risks, benefits, side effects, alternative therapies (including not receiving the proposed treatment or service), the likelihood of the patient achieving his/her goals, and potential recuperation problems for the procedure/sedation/analgesia, as well as any blood products, if indicated. I also explained to the patient the risks, benefits and side effects of the alternatives, as well as the risks related to not receiving the proposed procedure, care, treatment, or services. Past Medical History Past Medical History: Hypertension, Sleep Apnea/CPAP/BIPAP Additional Past Medical History / Comment(s): PCOS, kidney stones, uses CPAP, pre-diabetic History of Any Multi-Drug Resistant Organisms: None Reported Past Surgical History: Bariatric Surgery Additional Past Surgical History / Comment(s): gastric sleeve 2013, EGD, ureteral stent placement 11/22 Additional Past Anesthesia/Blood Transfusion Reaction / Comment(s): Bradycardia after gastric sleeve 2013 - in ICU x 4 days post surgery Smoking Status: Never smoker - Past Family History Father Family Medical History: Diabetes Mellitus, Hypertension Brother(s) Family Medical History: Diabetes Mellitus, Hypertension Medications and Allergies Home Medications Medication Instructions Recorded Confirmed Type ALPRAZolam [Xanax] 0.5 mg PO DAILY PRN 11/21/23 12/22/23 History Albuterol Inhaler [Ventolin Hfa 1 - 2 puff INHALATION Q6H PRN 11/21/23 12/22/23 History Inhaler] Celecoxib [CeleBREX] 200 mg PO DAILY 11/21/23 12/22/23 History Losartan/Hydrochlorothiazide 1 each PO QAM 11/21/23 12/22/23 History [Hyzaar 100-25 Tablet] Vilazodone HCl [Viibryd] 20 mg PO QAM 11/21/23 12/22/23 History metFORMIN HCL ER [Glucophage XR] 500 mg PO W/SUPPER 11/21/23 12/22/23 History tiZANidine HCL [Zanaflex] 4 mg PO DAILY PRN 11/21/23 12/22/23 History cycloSPORINE 0.05% OPHTH SOLN 1 applicator BOTH EYES Q12H PRN 11/25/23 12/22/23 History [Restasis] ARIPiprazole [Abilify] 5 mg PO HS 12/22/23 12/22/23 History Montelukast [Singulair] 10 mg PO HS 12/22/23 12/22/23 History Allergies Allergy/AdvReac Type Severity Reaction Status Date / Time perfume Allergy Dyspnea Verified 12/22/23 09:00 adhesive tape AdvReac Rash/Hives Verified 12/22/23 09:00 Surgical - Exam - General no distress, no pain - Eyes normal ocular movement, no pale - Respiratory normal expansion, normal respiratory effort - Abdomen Abdomen: soft, non tender, no distended - Psychiatric oriented to time, oriented to person, oriented to place Assessment and Plan Assessment: OR for left-sided ureteroscopy, holmium laser lithotripsy, stone basketing, stent removal versus exchange
[~2023-12-23 10:09] MED LIST changes: +MIDAZOLAM 2 MG/2 ML VIAL IV PRN; +ONDANSETRON 4 MG/2 ML VIAL IVP ONE; -droPERidol 5 MG/2 ML VIAL IVP ONE
--- NOTE | 2023-12-23 10:50 | XR ---
EXAMINATION TYPE: XR KUB DATE OF EXAM: 12/23/2023 HISTORY: Pain Comparison: None.Single KUB is submitted for interpretation. Findings: Right renal calculi: None Visualized. Right ureteral calculi: None Visualized. Left renal calculi: Calculus overlies the lower pole of the left kidney measuring 1.8 cm. Left ureteral calculi: Double pigtail left-sided ureteral stent is in place. Pelvic calcifications: None Visualized. Bowel gas pattern is unremarkable. No free air. No mass effects. IMPRESSION: 1. As above
[2023-12-23 11:00] LABS: Glucose,Whole Blood 116 mg/dL (70-110)
[2023-12-23] MEDS ORDERED: diphenhydrAMINE 50 MG/ML 1 ML VIAL ONE (11:00)
[2023-12-23] MEDS: diphenhydrAMINE 50 MG/ML 1 ML VIAL IVP ONE (11:02)
[2023-12-23] MEDS: DEXAMETHASONE SOD PHOSPHATE 4 MG/ML 1 ML VIAL IV ONE (11:02)
[2023-12-23] MEDS: LACTATED RINGERS 1,000 ML IV SCH (11:02)
[2023-12-23] MEDS: ONDANSETRON 4 MG/2 ML VIAL ONE (11:02)
[2023-12-23] MEDS: FAMOTIDINE 20 MG/2 ML VIAL IVP ONE (11:20)
[2023-12-23] MEDS: MIDAZOLAM 2 MG/2 ML VIAL IVP ONE ×3 (11:24→11:30)
[2023-12-23] MEDS: ceFAZolin 3 GM in SODIUM CHLORIDE 0.9% 100 ML IVPB PRN (11:46)
[2023-12-23] MEDS ORDERED: LIDOCAINE 1% INJ 10MG/ML (20 ML MDV) ONE (12:04)
[2023-12-23] MEDS ORDERED: fentaNYL (PF) 50 MCG/ML 2 ML AMP ONE (12:04)
[2023-12-23] MEDS ORDERED: PROPOFOL 10 MG/ML 20 ML VIAL IV ONE (12:04)
[2023-12-23] MEDS ORDERED: SUCCINYLCHOLINE CHLORIDE 200 MG/10 ML VIAL IV ONE (12:04)
[2023-12-23 14:50] LABS: Glucose,Whole Blood 144 mg/dL (70-110)
[2023-12-23] MEDS: KETOROLAC 15 MG/ML 1 ML VIAL IVP ONE (14:56)
[2023-12-23 15:00] VITALS: TEMP 97.6
--- NOTE | 2023-12-23 15:01 | P.OP ---
Date of Procedure: 12/23/23 Preoperative Diagnosis: Left renal stone Postoperative Diagnosis: Same Procedure(s) Performed: Cystoscopy, left ureteroscopy, holmium laser lithotripsy, stone basketing and stent insertion Implants: 6 Ecuadorean by 26 cm stent in the left ureter left on a string and taped to the patient thigh Anesthesia: CAROLA Surgeon: Erik Yung Estimated Blood Loss (ml): 10 Pathology: other (left kidney stone) Condition: stable Disposition: PACU Indications for Procedure: This is a 43-year-old female with history of a 2 cm left-sided lower pole renal stone, she is symptomatic from her stone. Discussed with her the most definitive surgery to address her stone would be a PCNL. Discussed given her morbid obesity she is at a higher risk of complications. Discussed the alternative of doing staged ureteroscopy. She did undergo attempted ureteroscopy on November 24, at that time I encountered a narrowing in the ureter and proceeded with stent placement. She presents today for left-sided ureteroscopy with holmium laser. Discussed risk of surgery which includes but not limited to bleeding, infection, injury to the ureter. Risk of anesthesia was also discussed. She understood all the risk and agreed to proceed Operative Findings: Large left-sided lower pole stone, multiple additional stones within the midpole Description of Procedure: Patient brought to the operating room, general anesthesia was induced. She was prepped and draped in sterile fashion and placed in dorsolithotomy position. Cystoscopy fitted with a 21 Ecuadorean sheath was inserted per urethra, cystoscopy was performed which showed no abnormality within the bladder. Attention was then carried to the left ureteral orifice the stent was seen protruding from it, the stent was grasped and removed to the meatus. Next a sensor wire was advanced through the stent and the location of the wire was confirmed to be within the kidney on fluoroscopy. Next a 1214 Ecuadorean access sheath was passed over the wire and into the proximal ureter. Next a flexible ureteroscope was inserted through the access sheath, renoscopy was performed showed a large stone in the lower pole, and multiple smaller stones were seen in the midpole. Stones within the midpole were grasped and removed intact. And the stone within the lower pole was dusted using the holmium laser, sizable stone fragments were removed using the stone basket. Repeat renoscopy showed no sizable stone fragments or injury to the kidney, of note there was significant amount of dust within the kidney secondary to the stone dusting which limited visualization, but on fluoroscopy there was no radiopaque densities seen. At this time pullback ureteroscopy was performed which showed no injury to the ureter or any ureteral stones, as ureteroscope was withdrawn a sensor wire was advanced through. Next a ureteral stent was passed over the wire, the proximal curl visualized on fluoroscopy and the distal curl was visualized using the cystoscope. The stent was left on a string and taped to the patient left thigh. The patient was awakened from anesthesia and taken to recovery in stable condition
[2023-12-23] MEDS: HYDROmorphone 0.5 MG/0.5 ML SYRINGE IVP PRN (15:06)
[2023-12-23] MEDS: ENALAPRILAT 1.25 MG/ML 1 ML VIAL IVP ONE ×2 (15:21→15:31)
--- NOTE | 2023-12-23 15:24 | FL ---
Fluoroscopy History: Left Kidney stone 40 sec Fl 1.25 DAP
[2023-12-23 16:27] VITALS: BP 155/78; PULSE 98; RESP 18
== END 2023-12-23 16:46 | disposition home or self-care (01) ==
LOC: OR 10:09
PROVIDERS: ATTEND Urology
DX: N20.0 Calculus of kidney (principal); I10 Essential (primary) hypertension; G47.33 Obstructive sleep apnea (adult) (pediatric); J45.909 Unspecified asthma, uncomplicated; Z87.442 Personal history of urinary calculi; Z98.84 Bariatric surgery status; Z83.3 Family history of diabetes mellitus; Z82.49 Family history of ischemic heart disease and other diseases of the circulatory system; Z79.51 Long term (current) use of inhaled steroids; Z79.1 Long term (current) use of non-steroidal anti-inflammatories (NSAID); Z79.84 Long term (current) use of oral hypoglycemic drugs; Z79.899 Other long term (current) drug therapy; Z98.890 Other specified postprocedural states; Z91.048 Other nonmedicinal substance allergy status
CPT/HCPCS: 52356; 81025; 82365; 74018; C2625; C1769 ×2; J2250; J0330; J1200; J1100; J0690; J2405; J2001; J3010; J3490; J1885; J2704; J1170

== ENCOUNTER 2023-12-27 17:09 | Inpatient (IN) | payer BC ==
[2023-12-27] MEDS: SODIUM CHLORIDE 0.9% 500 ML 500 ML IV STA (18:18)
[2023-12-27] MEDS: SODIUM CHLORIDE 0.9% 1,000 ML IV STA ×2 (18:18)
[2023-12-27] MEDS: IBUPROFEN 800 MG TAB PO STA (18:21)
[2023-12-27] MEDS: ACETAMINOPHEN TAB 500 MG TAB PO STA (18:21)
[2023-12-27] MEDS: KETOROLAC 15 MG/ML 1 ML VIAL IVP STA (18:21)
[2023-12-27] MEDS: ONDANSETRON 4 MG/2 ML VIAL IVP STA (18:22)
--- NOTE | 2023-12-27 18:34 | ED ---
Fever HPI - General Chief Complaint: Urogenital Stated Complaint: Fever Time Seen by Provider: 12/27/23 17:44 Source: patient, family, RN notes reviewed, old records reviewed Mode of arrival: wheelchair Limitations: no limitations - History of Present Illness Initial Comments: This is a 43-year-old female to the ER today. This patient presents today for evaluation regards to fever. Fever headache back pain body aches body pain kidney pain. Patient recently had ureteral stent removed this was after lithotripsy for significantly large kidney stone. Patient does have a complicated medical history and significant morbid obesity MD Complaint: fever, malaise, weakness -: hour(s) Temperature Source: subjective, oral Context: sick contacts, multiple patients with similar symptoms Associated Symptoms: denies other symptoms Treatments Prior to Arrival: none - Related Data Home Medications Medication Instructions Recorded Confirmed ALPRAZolam [Xanax] 0.5 mg PO DAILY PRN 11/21/23 12/27/23 Albuterol Inhaler [Ventolin Hfa 1 - 2 puff INHALATION Q6H PRN 11/21/23 12/27/23 Inhaler] Celecoxib [CeleBREX] 200 mg PO DAILY PRN 11/21/23 12/27/23 Losartan/Hydrochlorothiazide 1 tab PO DAILY 11/21/23 12/27/23 [Hyzaar 100-25 Tablet] Vilazodone HCl [Viibryd] 20 mg PO DAILY 11/21/23 12/27/23 metFORMIN HCL ER [Glucophage XR] 500 mg PO W/SUPPER 11/21/23 12/27/23 tiZANidine HCL [Zanaflex] 4 mg PO DAILY PRN 11/21/23 12/27/23 cycloSPORINE 0.05% OPHTH SOLN 1 applicator BOTH EYES Q12H PRN 11/25/23 12/27/23 [Restasis] ARIPiprazole [Abilify] 5 mg PO HS 12/22/23 12/27/23 Montelukast [Singulair] 10 mg PO HS 12/22/23 12/27/23 Previous Rx's Medication Instructions Recorded HYDROcodone/APAP 5-325MG [[place] 1 tab PO Q6HR PRN 3 Days #12 tab 12/23/23 5-325] Ketorolac [Toradol] 10 mg PO Q6HR PRN #10 tab 12/23/23 Acetaminophen Tab [Tylenol] 650 mg PO Q6HR PRN tab 12/30/23 Ciprofloxacin HCl [Cipro] 750 mg PO Q12H 10 Days #20 tab 12/30/23 Allergies Allergy/AdvReac Type Severity Reaction Status Date / Time perfume Allergy Dyspnea Verified 12/27/23 19:44 adhesive tape AdvReac Rash/Hives Verified 12/27/23 19:44 Review of Systems ROS Statement: Those systems with pertinent positive or pertinent negative responses have been documented in the HPI. ROS Other: All systems not noted in ROS Statement are negative. Past Medical History Past Medical History: Hypertension Additional Past Medical History / Comment(s): Kidney stones History of Any Multi-Drug Resistant Organisms: None Reported Past Surgical History: Bariatric Surgery Additional Past Surgical History / Comment(s): gastric sleeve 2013, transurethral lithotripsy 12/23/23 Past Psychological History: Depression Smoking Status: Never smoker Past Alcohol Use History: None Reported, Rare Past Drug Use History: None Reported General Exam Limitations: no limitations General appearance: alert, in no apparent distress Head exam: Present: atraumatic, normocephalic, normal inspection Eye exam: Present: normal appearance, PERRL, EOMI. Absent: scleral icterus, conjunctival injection, periorbital swelling ENT exam: Present: normal exam, mucous membranes moist Neck exam: Present: normal inspection. Absent: tenderness, meningismus, lymp hadenopathy Respiratory exam: Present: normal lung sounds bilaterally. Absent: respiratory distress, wheezes, rales, rhonchi, stridor Cardiovascular Exam: Present: regular rate, normal rhythm, normal heart sounds. Absent: systolic murmur, diastolic murmur, rubs, gallop, clicks GI/Abdominal exam: Present: soft, normal bowel sounds. Absent: distended, tenderness, guarding, rebound, rigid Extremities exam: Present: normal inspection, full ROM, normal capillary refill. Absent: tenderness, pedal edema, joint swelling, calf tenderness Back exam: Present: normal inspection Neurological exam: Present: alert, oriented X3, CN II-XII intact Psychiatric exam: Present: normal affect, normal mood Skin exam: Present: warm, dry, intact, normal color. Absent: rash Course Vital Signs 12/27/23 12/27/23 12/27/23 17:22 19:27 21:57 Temperature 102.8 F H 101.4 F H 98.6 F Pulse Rate 98 90 80 Respiratory 18 18 18 Rate Blood Pressure 166/77 129/64 129/68 O2 Sat by Pulse 97 93 L 93 L Oximetry - Reevaluation(s) Reevaluation #1: 12/27/23 18:34 Medical record is reviewed Reevaluation #2: 12/27/23 18:34 Patient symptoms are improving Reevaluation #3: 12/27/23 18:34 Patient informed of results and questions answered Reevaluation #4: Was pt. sent in by a medical professional or institution (, [facility], DIRECT[employer]TEGRATED, urgent care, hospital, or senior care...) When possible be specific @ -no Did you speak to anyone other than the patient for history (EMS, parent, family, police, friend...)? What history was obtained from this source @ -no Did you review nursing and triage notes (agree or disagree)? Why? @ -agree Are old charts reviewed (outside hosp., previous admission, EMS record, old EKG, old radiological studies, urgent care reports/EKG's, senior care records)? Report findings @ -yes Differential Diagnosis (chest pain, altered mental status, abdominal pain women, abdominal pain men, vaginal bleeding, weakness, fever, dyspnea, syncope, headache, dizziness, GI bleed, back pain, seizure, CVA, palpatations, mental health, musculoskeletal)? @ -prior EKG interpreted by me (3pts min.). @ -no X-rays interpreted by me (1pt min.). @ -yes negative for acute disease CT interpreted by me (1pt min.). @ -no U/S interpreted by me (1pt. min.). @ -no What testing was considered but not performed or refused? (CT, X-rays, U/S, labs)? Why? @ -none What meds were considered but not given or refused? Why? @ -none Did you discuss the management of the patient with other professionals (professionals i.e. [facility] Chan, [employer], lab, RT, psych nurse, social media sr strategy manager, senior construction manager, teacher, environmental conservation officer, case management manager)? Give summary @ -no Was smoking cessation discussed for >3mins.? @ -no Was critical care preformed (if so, how long)? @ -no Were there social determinants of health that impacted care today? How? (Homelessness, low income, unemployed, alcoholism, drug addiction, transportation, low edu. Level, literacy, decrease access to med. care, senior care, rehab)? @ -none Was there de-escalation of care discussed even if they declined (Discuss DNR or withdrawal of care, Hospice)? DNR status @ -no What co-morbidities impacted this encounter? (DM, HTN, Smoking, COPD, CAD, Cancer, CVA, ARF, Chemo, Hep., AIDS, mental health diagnosis, sleep apnea, morbid obesity)? @ -none Was patient admitted / discharged? Hospital course, mention meds given and route, prescriptions, significant lab abnormalities, going to OR and other pertinent info. @ - 43 female will be admitted for acute pyelonephritis Admitted Undiagnosed new problem with uncertain prognosis? @ -no Drug Therapy requiring intensive monitoring for toxicity (Heparin, Nitro, Insulin, Cardizem)? @ -no Were any procedures done? @ -no Diagnosis/symptom? @ -UTI fever pyelonephritis Acute, or Chronic, or Acute on Chronic? @ -Acute Uncomplicated (without systemic symptoms) or Complicated (systemic symptoms)? @ -Complicated Side effects of treatment? @ -no Exacerbation, Progression, or Severe Exacerbation? @ -exacerbation Poses a threat to life or bodily function? How? (Chest pain, [place], [place], pneumonia, PE, COPD, DKA, ARF, appy, cholecystitis, CVA, Diverticulitis, Homicidal, Suicidal, threat to staff... and all critical care pts) @ -yes with significant pyelonephritis Reevaluation #5: Differential Fever: Pneumonia, viral URI, endocarditis, myocarditis, pericarditis, otitis, sinusitis, peritonsillar Abscess, retropharyngeal Abscess, epiglottitis, peritonitis, appendicitis, Lurdes cystitis, diverticulitis, hepatitis, colitis, UTI, PID, TOA, pyelonephritis, prostatitis, epididymitis, meningitis, encephalitis, pulmonary embolism, CVA, thyroid storm, pancreatitis, adrenal crisis, cavernous sinus thrombosis, this is not meant to be an all-inclusive list. - Consultations Consultation #1: Spoke with admitting physicians who agreed to admit this patient Medical Decision Making - Medical Decision Making 43 female will be admitted for acute pyelonephritis - Lab Data Result diagrams: 12/29/23 05:51 12/29/23 05:51 Lab Results 12/27/23 12/27/23 12/27/23 Range/Units 18:05 18:05 18:05 WBC 10.3 (3.8-10.6) k/uL RBC 4.87 (3.80-5.40) m/uL Hgb 14.4 (11.4-16.0) gm/dL Hct 42.4 (34.0-46.0) % MCV 87.0 (80.0-100.0) fL MCH 29.5 (25.0-35.0) pg MCHC 33.9 (31.0-37.0) g/dL RDW 13.8 (11.5-15.5) % Plt Count 222 (150-450) k/uL MPV 7.3 Neutrophils % 78 % Lymphocytes % 14 % Monocytes % 5 % Eosinophils % 2 % Basophils % 0 % Neutrophils # 8.1 H (1.3-7.7) k/uL Lymphocytes # 1.4 (1.0-4.8) k/uL Monocytes # 0.5 (0-1.0) k/uL Eosinophils # 0.2 (0-0.7) k/uL Basophils # 0.0 (0-0.2) k/uL Sodium 134 L (137-145) mmol/L Potassium 3.9 (3.5-5.1) mmol/L Chloride 99 (98-107) mmol/L Carbon Dioxide 30 (22-30) mmol/L Anion Gap 5 mmol/L BUN 18 H (7-17) mg/dL Creatinine 0.64 (0.52-1.04) mg/dL Est GFR (CKD-EPI)AfAm >90 (>60 ml/min/1.73 sqM) Est GFR (CKD-EPI)NonAf >90 (>60 ml/min/1.73 sqM) Glucose 110 H (74-99) mg/dL Plasma Lactic Acid Sergo (0.7-2.0) mmol/L Calcium 9.2 (8.4-10.2) mg/dL Phosphorus 3.3 (2.5-4.5) mg/dL Magnesium 1.7 (1.6-2.3) mg/dL Total Bilirubin 1.0 (0.2-1.3) mg/dL AST 30 (14-36) U/L ALT 29 (4-34) U/L Alkaline Phosphatase 85 (38-126) U/L Troponin I (0.000-0.034) ng/mL NT-Pro-B Natriuret Pep pg/mL Total Protein 7.4 (6.3-8.2) g/dL Albumin 4.1 (3.5-5.0) g/dL Urine Color Colorless Urine Appearance Clear (Clear) Urine pH 5.5 (5.0-8.0) Ur Specific [place] 1.015 (1.001-1.035) Urine Protein Negative (Negative) Urine Glucose (UA) Negative (Negative) Urine Ketones Negative (Negative) Urine Blood Moderate H (Negative) Urine Nitrite Negative (Negative) Urine Bilirubin Negative (Negative) Urine Urobilinogen <2.0 (<2.0) mg/dL Ur Leukocyte Esterase Moderate H (Negative) Urine RBC 14 H (0-5) /hpf Urine WBC 19 H (0-5) /hpf Ur Squamous Epith Cells 3 (0-4) /hpf Urine Mucus Rare H (None) /hpf 12/27/23 12/27/23 12/27/23 Range/Units 18:05 18:05 18:05 WBC (3.8-10.6) k/uL RBC (3.80-5.40) m/uL Hgb (11.4-16.0) gm/dL Hct (34.0-46.0) % MCV (80.0-100.0) fL MCH (25.0-35.0) pg MCHC (31.0-37.0) g/dL RDW (11.5-15.5) % Plt Count (150-450) k/uL MPV Neutrophils % % Lymphocytes % % Monocytes % % Eosinophils % % Basophils % % Neutrophils # (1.3-7.7) k/uL Lymphocytes # (1.0-4.8) k/uL Monocytes # (0-1.0) k/uL Eosinophils # (0-0.7) k/uL Basophils # (0-0.2) k/uL Sodium (137-145) mmol/L Potassium (3.5-5.1) mmol/L Chloride (98-107) mmol/L Carbon Dioxide (22-30) mmol/L Anion Gap mmol/L BUN (7-17) mg/dL Creatinine (0.52-1.04) mg/dL Est GFR (CKD-EPI)AfAm (>60 ml/min/1.73 sqM) Est GFR (CKD-EPI)NonAf (>60 ml/min/1.73 sqM) Glucose (74-99) mg/dL Plasma Lactic Acid Sergo 1.3 (0.7-2.0) mmol/L Calcium (8.4-10.2) mg/dL Phosphorus (2.5-4.5) mg/dL Magnesium (1.6-2.3) mg/dL Total Bilirubin (0.2-1.3) mg/dL AST (14-36) U/L ALT (4-34) U/L Alkaline Phosphatase (38-126) U/L Troponin I <0.012 (0.000-0.034) ng/mL NT-Pro-B Natriuret Pep 42 pg/mL Total Protein (6.3-8.2) g/dL Albumin (3.5-5.0) g/dL Urine Color Urine Appearance (Clear) Urine pH (5.0-8.0) Ur Specific [place] (1.001-1.035) Urine Protein (Negative) Urine Glucose (UA) (Negative) Urine Ketones (Negative) Urine Blood (Negative) Urine Nitrite (Negative) Urine Bilirubin (Negative) Urine Urobilinogen (<2.0) mg/dL Ur Leukocyte Esterase (Negative) Urine RBC (0-5) /hpf Urine WBC (0-5) /hpf Ur Squamous Epith Cells (0-4) /hpf Urine Mucus (None) /hpf - Radiology Data Radiology results: report reviewed (Chest x-ray is negative for acute disease), image reviewed Disposition Clinical Impression: Pyelonephritis, Urinary tract infection, Fever Disposition: ADMITTED IP TO THIS [facility] Condition: Serious Is patient prescribed a controlled substance at d/c from ED?: No Time of Disposition: 21:00
[2023-12-27 18:35] LABS: Basophils % (A) 0 %; Eosinophils # (A) 0.2 k/uL (0-0.7); Eosinophils % (A) 2 %; HCT 42.4 % (34.0-46.0); HGB 14.4 gm/dL (11.4-16.0); Lymphocytes # (A) 1.4 k/uL (1.0-4.8); Lymphocytes % (A) 14 %; MCH 29.5 pg (25.0-35.0); MCHC 33.9 g/dL (31.0-37.0); Mean Platelet Volume 7.3; Monocytes # (A) 0.5 k/uL (0-1.0); Monocytes % (A) 5 %; Neutrophils # (A) 8.1 k/uL (1.3-7.7); Neutrophils % (A) 78 %; Platelet Count 222 k/uL (150-450); RBC 4.87 m/uL (3.80-5.40); RDW 13.8 % (11.5-15.5); WBC 10.3 k/uL (3.8-10.6)
[2023-12-27 18:45] LABS: ALT 29 U/L (4-34); AST 30 U/L (14-36); African American GFR (CKD) >90 (>60 ml/min/1.73 sqM); Albumin 4.1 g/dL (3.5-5.0); Alkaline Phosphatase 85 U/L (38-126); Anion Gap 5 mmol/L; Blood Urea Nitrogen 18 mg/dL (7-17); Calcium 9.2 mg/dL (8.4-10.2); Carbon Dioxide 30 mmol/L (22-30); Chloride 99 mmol/L (98-107); Glucose 110 mg/dL (74-99); Magnesium 1.7 mg/dL (1.6-2.3); Non-African American GFR(CKD) >90 (>60 ml/min/1.73 sqM); Phosphorus 3.3 mg/dL (2.5-4.5); Potassium 3.9 mmol/L (3.5-5.1); Sodium 134 mmol/L (137-145); Total Protein 7.4 g/dL (6.3-8.2)
[2023-12-27 18:50] LABS: Appearance,Urine Clear (Clear); Bilirubin,Urine Negative (Negative); Blood,Urine Moderate (Negative); Color,Urine Colorless; Glucose,Urine (UA) Negative (Negative); Ketones,Urine Negative (Negative); Leukocyte Esterase,Urine Moderate (Negative); Mucus,Urine Rare /hpf; Nitrite,Urine Negative (Negative); PH, Urine 5.5 (5.0-8.0); Protein,Urine Negative (Negative); RBC,Urine 14 /hpf (0-5); Specific Gravity,Urine 1.015 (1.001-1.035); Squamous Epithelial Cell,Urine 3 /hpf (0-4); Urobilinogen,Urine <2.0 mg/dL (<2.0); WBC,Urine 19 /hpf (0-5)
--- NOTE | 2023-12-27 20:08 | XR ---
EXAM: XR chest 1V portable CLINICAL INDICATION:Female, 43 years old with history of cough; [facility] COMPARISON: None. TECHNIQUE: Chest single view. FINDINGS: Heart appears mildly enlarged. Unremarkable mediastinum. Mild pulmonary vascular congestion with mild perihilar vascular engorgement. No sizable effusion, pne umothorax, or focal airspace disease. No acute osseous abnormalities. IMPRESSION: Mild cardiomegaly and congestion. Correlate for mild CHF.
[2023-12-27] MEDS ORDERED: ONDANSETRON 4 MG/2 ML VIAL IVP PRN (21:03)
[2023-12-27] MEDS ORDERED: NALOXONE 0.4 MG/ML 1 ML VIAL IV PRN (21:03)
[2023-12-27] MEDS: SODIUM CHLORIDE 0.9% 1,000 ML IV SCH (21:50)
[2023-12-27] MEDS ORDERED: ALBUTEROL NEBULIZED 2.5 MG/3 ML INHALATION PRN (22:41)
[2023-12-27] MEDS ORDERED: DEXTROSE 50% SYRINGE 50 ML IVP PRN ×2 (22:45)
[2023-12-27] MEDS ORDERED: cycloSPORINE 0.05% OPHTH 0.4 ML DROPERETTE BOTH EYES PRN (23:00)
[2023-12-27] MEDS: ACETAMINOPHEN TAB 325 MG TAB PO PRN (23:21)
[2023-12-27] MEDS: MONTELUKAST 10 MG TAB PO SCH (23:55)
[2023-12-27] MEDS: ARIPiprazole 5 MG TAB PO SCH (23:55)
[2023-12-28] MEDS: HYDROmorphone 1 MG/ML 1 ML SYRINGE IVP PRN (04:31)
[2023-12-28 05:26] LABS: ALT 21 U/L (4-34); AST 21 U/L (14-36); African American GFR (CKD) >90 (>60 ml/min/1.73 sqM); Albumin 3.2 g/dL (3.5-5.0); Alkaline Phosphatase 70 U/L (38-126); Anion Gap 6 mmol/L; Blood Urea Nitrogen 17 mg/dL (7-17); Calcium 8.2 mg/dL (8.4-10.2); Carbon Dioxide 27 mmol/L (22-30); Chloride 102 mmol/L (98-107); Glucose 134 mg/dL (74-99); Magnesium 1.9 mg/dL (1.6-2.3); Non-African American GFR(CKD) >90 (>60 ml/min/1.73 sqM); Phosphorus 3.4 mg/dL (2.5-4.5); Potassium 3.4 mmol/L (3.5-5.1); Sodium 135 mmol/L (137-145); Total Bilirubin 0.7 mg/dL (0.2-1.3)
[2023-12-28 05:52] LABS: Basophils % (A) 0 %; Eosinophils # (A) 0.1 k/uL (0-0.7); Eosinophils % (A) 1 %; HCT 37.1 % (34.0-46.0); HGB 12.4 gm/dL (11.4-16.0); Lymphocytes # (A) 1.3 k/uL (1.0-4.8); Lymphocytes % (A) 16 %; MCH 29.5 pg (25.0-35.0); MCHC 33.4 g/dL (31.0-37.0); MCV 88.3 fL (80.0-100.0); Mean Platelet Volume 7.4; Monocytes # (A) 0.6 k/uL (0-1.0); Monocytes % (A) 7 %; Neutrophils # (A) 5.9 k/uL (1.3-7.7); Neutrophils % (A) 74 %; Platelet Count 198 k/uL (150-450)
[2023-12-28 07:26] LABS: Glucose,Whole Blood 144 mg/dL (70-110)
[2023-12-28] MEDS: INSULIN ASPART (NovoLOG) 100 UNIT/ML VIAL SQ SCH (08:12)
[2023-12-28] MEDS ORDERED: tiZANidine 4 MG TAB PO PRN (09:00)
[2023-12-28] MEDS ORDERED: MELOXICAM 7.5 MG TAB PO PRN (09:00)
--- NOTE | 2023-12-28 09:03 | XR ---
EXAMINATION TYPE: XR KUB DATE OF EXAM: 12/28/2023 8:22 AM CLINICAL INDICATION:Female, 43 years old with history of left ureteral stones; [facility] COMPARISON: KUB 12/23/2023 TECHNIQUE: Supine radiographic view/s of the abdomen/pelvis obtained. FINDINGS: Significant limitation by underpenetration related to the patient's large body habitus. The previous left double pigtail ureteral stent has been removed. There are GI tract contents overlyi ng the kidneys limiting assessment, however there is faint visualization of a 17 mm radiodensity proj ected over the mid to lower pole left kidney which likely corresponds to the previously better seen c alculus. Also just superior to this is a a 3 mm radiodensity which may represent another renal stone. No definite calculi can be seen projected over the right kidney or expected course of the ureters. Unremarkable bowel gas pattern. Moderate degenerative changes throughout the spine. No acute bony abnormality suggested. Surgical cli ps in left upper abdomen. IMPRESSION: 1. Interval removal of the left double pigtail ureteral stent. 2. Faintly seen 17 mm calculus overlying the lower pole of the left kidney redemonstrated. Possible additional 3 mm calculus just superior.
[2023-12-28] MEDS: HYDROcodone/APAP 5-325MG 1 EACH TAB PO PRN (09:21)
--- NOTE | 2023-12-28 09:58 | P.GSCN ---
History of Present Illness Consult date: 12/28/23 History of present illness: 43 yo female who underwnet a left ureteroscopy with laser lithotripsy and stent replacement by Dr parks on 12/22. Her stent was inadvertently pulled out on 12/25. She presented to the er with fever yesterday. Her wbc are normal. Her cr is normal Her urine looks inflammed. she still is having some pain. She had a KUB and ultrasound. The KUB did not show an obvious stone in the ureter. There may be a 3 mm stone remaining in the kidney.The ultrasound did not show any significant hydronephrosis. Review of Systems All systems: negative - Constitutional Denies fever, Denies weight loss - EENT Eyes: denies blurred vision Ears, nose, mouth and throat: Denies dysphagia - Cardiovascular Denies chest pain, Denies shortness of breath - Respiratory Denies cough, Denies 7 - Gastrointestinal Reports as per HPI - Genitourinary Genitourinary: Denies dysuria, Denies hematuria - Integumentary Denies rash, Denies unusual bruising - Neurological Denies headaches, Denies syncope - Hematologic/Lymphatic Denies easy bleeding, Denies easy bruising Past Medical History Past Medical History: Asthma, Hypertension, Sleep Apnea/CPAP/BIPAP Additional Past Medical History / Comment(s): Kidney stones, pre diabetic History of Any Multi-Drug Resistant Organisms: None Reported Past Surgical History: Bariatric Surgery Additional Past Surgical History / Comment(s): gastric sleeve 2013, transurethral lithotripsy 12/23/23 Past Psychological History: Anxiety, Depression Smoking Status: Never smoker Past Alcohol Use History: None Reported, Rare Past Drug Use History: None Reported Medications and Allergies Home Medications Medication Instructions Recorded Confirmed Type ALPRAZolam [Xanax] 0.5 mg PO DAILY PRN 11/21/23 12/27/23 History Albuterol Inhaler [Ventolin Hfa 1 - 2 puff INHALATION Q6H PRN 11/21/23 12/27/23 History Inhaler] Celecoxib [CeleBREX] 200 mg PO DAILY PRN 11/21/23 12/27/23 History Losartan/Hydrochlorothiazide 1 tab PO DAILY 11/21/23 12/27/23 History [Hyzaar 100-25 Tablet] Vilazodone HCl [Viibryd] 20 mg PO DAILY 11/21/23 12/27/23 History metFORMIN HCL ER [Glucophage XR] 500 mg PO W/SUPPER 11/21/23 12/27/23 History tiZANidine HCL [Zanaflex] 4 mg PO DAILY PRN 11/21/23 12/27/23 History cycloSPORINE 0.05% OPHTH SOLN 1 applicator BOTH EYES Q12H PRN 11/25/23 12/27/23 History [Restasis] ARIPiprazole [Abilify] 5 mg PO HS 12/22/23 12/27/23 History Montelukast [Singulair] 10 mg PO HS 12/22/23 12/27/23 History Cephalexin [Keflex] 500 mg PO Q8HR #15 cap 12/23/23 12/27/23 Rx HYDROcodone/APAP 5-325MG [[place] 1 tab PO Q6HR PRN 3 Days #12 tab 12/23/23 12/27/23 Rx 5-325] Ketorolac [Toradol] 10 mg PO Q6HR PRN #10 tab 12/23/23 12/27/23 Rx Allergies Allergy/AdvReac Type Severity Reaction Status Date / Time perfume Allergy Dyspnea Verified 12/27/23 19:44 adhesive tape AdvReac Rash/Hives Verified 12/27/23 19:44 Surgical - Exam Vital Signs Temp Pulse Resp BP Pulse Ox 102.8 F H 98 18 166/77 97 12/27/23 17:22 12/27/23 17:22 12/27/23 17:22 12/27/23 17:22 12/27/23 17:22 Results - Labs 12/28/23 04:12 12/28/23 04:12 Abnormal Lab Results - Last 24 Hours (Table) 12/27/23 12/27/23 12/27/23 Range/Units 18:05 18:05 18:05 Neutrophils # 8.1 H (1.3-7.7) k/uL Sodium 134 L (137-145) mmol/L Potassium (3.5-5.1) mmol/L BUN 18 H (7-17) mg/dL Glucose 110 H (74-99) mg/dL Calcium (8.4-10.2) mg/dL Total Protein (6.3-8.2) g/dL Albumin (3.5-5.0) g/dL Urine Blood Moderate H (Negative) Ur Leukocyte Esterase Moderate H (Negative) Urine RBC 14 H (0-5) /hpf Urine WBC 19 H (0-5) /hpf Urine Mucus Rare H (None) /hpf 12/28/23 Range/Units 04:12 Neutrophils # (1.3-7.7) k/uL Sodium 135 L (137-145) mmol/L Potassium 3.4 L (3.5-5.1) mmol/L BUN (7-17) mg/dL Glucose 134 H (74-99) mg/dL Calcium 8.2 L (8.4-10.2) mg/dL Total Protein 6.0 L (6.3-8.2) g/dL Albumin 3.2 L (3.5-5.0) g/dL Urine Blood (Negative) Ur Leukocyte Esterase (Negative) Urine RBC (0-5) /hpf Urine WBC (0-5) /hpf Urine Mucus (None) /hpf Diabetes panel 12/27/23 12/28/23 Range/Units 18:05 04:12 Sodium 134 L 135 L (137-145) mmol/L Potassium 3.9 3.4 L (3.5-5.1) mmol/L Chloride 99 102 (98-107) mmol/L Carbon Dioxide 30 27 (22-30) mmol/L BUN 18 H 17 (7-17) mg/dL Creatinine 0.64 0.70 (0.52-1.04) mg/dL Glucose 110 H 134 H (74-99) mg/dL Calcium 9.2 8.2 L (8.4-10.2) mg/dL AST 30 21 (14-36) U/L ALT 29 21 (4-34) U/L Alkaline Phosphatase 85 70 (38-126) U/L Total Protein 7.4 6.0 L (6.3-8.2) g/dL Albumin 4.1 3.2 L (3.5-5.0) g/dL Calcium panel 12/27/23 12/28/23 Range/Units 18:05 04:12 Calcium 9.2 8.2 L (8.4-10.2) mg/dL Phosphorus 3.3 3.4 (2.5-4.5) mg/dL Albumin 4.1 3.2 L (3.5-5.0) g/dL Pituitary panel 12/27/23 12/28/23 Range/Units 18:05 04:12 Sodium 134 L 135 L (137-145) mmol/L Potassium 3.9 3.4 L (3.5-5.1) mmol/L Chloride 99 102 (98-107) mmol/L Carbon Dioxide 30 27 (22-30) mmol/L BUN 18 H 17 (7-17) mg/dL Creatinine 0.64 0.70 (0.52-1.04) mg/dL Glucose 110 H 134 H (74-99) mg/dL Calcium 9.2 8.2 L (8.4-10.2) mg/dL Adrenal panel 12/27/23 12/28/23 Range/Units 18:05 04:12 Sodium 134 L 135 L (137-145) mmol/L Potassium 3.9 3.4 L (3.5-5.1) mmol/L Chloride 99 102 (98-107) mmol/L Carbon Dioxide 30 27 (22-30) mmol/L BUN 18 H 17 (7-17) mg/dL Creatinine 0.64 0.70 (0.52-1.04) mg/dL Glucose 110 H 134 H (74-99) mg/dL Calcium 9.2 8.2 L (8.4-10.2) mg/dL Total Bilirubin 1.0 0.7 (0.2-1.3) mg/dL AST 30 21 (14-36) U/L ALT 29 21 (4-34) U/L Alkaline Phosphatase 85 70 (38-126) U/L Total Protein 7.4 6.0 L (6.3-8.2) g/dL Albumin 4.1 3.2 L (3.5-5.0) g/dL Assessment and Plan Assessment: Impression: Probable uti post ureteroscopic stone removal left. Plan: I agree with the antibiotics. Given the KUB and ultrasound did not show any significant abnormalities this should be treated as a pyelonephritis with IV and IV antibiotics. We will follow.
[2023-12-28] MEDS: NON FORMULARY DRUG (Vilazodone Hcl [Viibryd] 20 MG Tablet) PO SCH (10:58)
[2023-12-28 12:10] LABS: Glucose,Whole Blood 154 mg/dL (70-110)
[2023-12-28] MEDS: LOSARTAN-HCTZ 50-12.5 MG 1 EACH TAB PO SCH (12:59)
--- NOTE | 2023-12-28 14:11 | P.HPIM ---
History of Present Illness H&P Date: 12/28/23 Chief Complaint: Fever and chills 43-year-old female, history of hypertension, asthma, obesity, anxiety/depression presents to the ER for evaluation regards to fever. Fever headache back pain body aches body pain kidney pain. Patient underwent left ureteroscopy with laser lithotripsy and stent replacement on 12/23/2023; according to records patient's stent was inadvertently pulled out on 12/26/2023 In the ED patient had a KUB and abdominal ultrasound; KUB did not reveal any stones in ureter with possibility of a 3 mm stone remaining in the kidney; ultrasound is unremarkable for hydronephrosis Blood work completed in ED reveals a WBC of 10.3, hemoglobin of 14.[address] atelet count of 222, sodium 134, potassium 3.9, BUNs/creatinine of 18/0.64, UA is positive for blood, leukocyte esterase and WBCs -- Patient has been evaluated by urology and is recommended admission for IV antibiotics for pyelonephritis Review of Systems REVIEW OF SYSTEMS: CONSTITUTIONAL: No fever, no malaise, no fatigue. HEENT: No recent visual problems or hearing problems. Denied any sore throat. CARDIOVASCULAR: No chest pain, orthopnea, PND, no palpitations, no syncope. PULMONARY: No shortness of breath, no cough, no hemoptysis. GASTROINTESTINAL: No diarrhea, no nausea, no vomiting, no abdominal pain. NEUROLOGICAL: No headaches, no weakness, no numbness. HEMATOLOGICAL: Denies any bleeding or petechiae. GENITOURINARY: Denies any burning micturition, frequency, or urgency. MUSCULOSKELETAL/RHEUMATOLOGICAL: Denies any joint pain, swelling, or any muscle pain. ENDOCRINE: Denies any polyuria or polydipsia. The rest of the 14-point review of systems is negative. Past Medical History Past Medical History: Asthma, Hypertension, Sleep Apnea/CPAP/BIPAP Additional Past Medical History / Comment(s): Kidney stones, pre diabetic History of Any Multi-Drug Resistant Organisms: None Reported Past Surgical History: Bariatric Surgery Additional Past Surgical History / Comment(s): gastric sleeve 2013, transurethr al lithotripsy 12/23/23 Past Psychological History: Anxiety, Depression Smoking Status: Never smoker Past Alcohol Use History: None Reported, Rare Past Drug Use History: None Reported Medications and Allergies Home Medications Medication Instructions Recorded Confirmed Type ALPRAZolam [Xanax] 0.5 mg PO DAILY PRN 11/21/23 12/27/23 History Albuterol Inhaler [Ventolin Hfa 1 - 2 puff INHALATION Q6H PRN 11/21/23 12/27/23 History Inhaler] Celecoxib [CeleBREX] 200 mg PO DAILY PRN 11/21/23 12/27/23 History Losartan/Hydrochlorothiazide 1 tab PO DAILY 11/21/23 12/27/23 History [Hyzaar 100-25 Tablet] Vilazodone HCl [Viibryd] 20 mg PO DAILY 11/21/23 12/27/23 History metFORMIN HCL ER [Glucophage XR] 500 mg PO W/SUPPER 11/21/23 12/27/23 History tiZANidine HCL [Zanaflex] 4 mg PO DAILY PRN 11/21/23 12/27/23 History cycloSPORINE 0.05% OPHTH SOLN 1 applicator BOTH EYES Q12H PRN 11/25/23 12/27/23 History [Restasis] ARIPiprazole [Abilify] 5 mg PO HS 12/22/23 12/27/23 History Montelukast [Singulair] 10 mg PO HS 12/22/23 12/27/23 History Cephalexin [Keflex] 500 mg PO Q8HR #15 cap 12/23/23 12/27/23 Rx HYDROcodone/APAP 5-325MG [[place] 1 tab PO Q6HR PRN 3 Days #12 tab 12/23/23 12/27/23 Rx 5-325] Ketorolac [Toradol] 10 mg PO Q6HR PRN #10 tab 12/23/23 12/27/23 Rx Allergies Allergy/AdvReac Type Severity Reaction Status Date / Time perfume Allergy Dyspnea Verified 12/27/23 19:44 adhesive tape AdvReac Rash/Hives Verified 12/27/23 19:44 Physical Exam Vitals: Vital Signs Temp Pulse Pulse Pulse Resp BP BP 12/28/23 09:12 100.0 F H 12/28/23 07:26 99.1 F 93 18 12/28/23 04:42 100.4 F H 12/28/23 02:00 98.7 F 85 18 130/82 12/27/23 22:30 85 12/27/23 22:17 99.4 F 88 20 131/78 12/27/23 21:57 98.6 F 80 18 129/68 12/27/23 19:27 101.4 F H 90 18 129/64 12/27/23 17:22 102.8 F H 98 18 166/77 BP Pulse Ox 12/28/23 09:12 12/28/23 07:26 136/76 94 L 12/28/23 04:42 12/28/23 02:00 92 L 12/27/23 22:30 12/27/23 22:17 92 L 12/27/23 21:57 93 L 12/27/23 19:27 93 L 12/27/23 17:22 97 Intake and Output 12/27/23 12/28/23 12/28/23 22:59 06:59 14:59 Other: # Voids 1 Weight 133.81 kg General appearance: alert, in no apparent distress Head exam: Present: atraumatic, normocephalic, normal inspection Eye exam: Present: normal appearance, PERRL, EOMI. Absent: scleral icterus, conjunctival injection, periorbital swelling ENT exam: Present: normal exam, mucous membranes moist Neck exam: Present: normal inspection. Absent: tenderness, meningismus, lymp hadenopathy Respiratory exam: Present: normal lung sounds bilaterally. Absent: respiratory distress, wheezes, rales, rhonchi, stridor Cardiovascular Exam: Present: regular rate, normal rhythm, normal heart sounds. Absent: systolic murmur, diastolic murmur, rubs, gallop, clicks GI/Abdominal exam: Present: soft, normal bowel sounds. Absent: distended, tenderness, guarding, rebound, rigid Extremities exam: Present: normal inspection, full ROM, normal capillary refill. Absent: tenderness, pedal edema, joint swelling, calf tenderness Neurological exam: Present: alert, oriented X3, CN II-XII intact Skin exam: Present: warm, dry, intact, normal color. Absent: rash Results CBC & Chem 7: 12/28/23 04:12 12/28/23 04:12 Labs: Abnormal Lab Results - Last 24 Hours (Table) 12/27/23 12/27/23 12/27/23 Range/Units 18:05 18:05 18:05 Neutrophils # 8.1 H (1.3-7.7) k/uL Sodium 134 L (137-145) mmol/L Potassium (3.5-5.1) mmol/L BUN 18 H (7-17) mg/dL Glucose 110 H (74-99) mg/dL POC Glucose (mg/dL) (70-110) mg/dL Calcium (8.4-10.2) mg/dL Total Protein (6.3-8.2) g/dL Albumin (3.5-5.0) g/dL Urine Blood Moderate H (Negative) Ur Leukocyte Esterase Moderate H (Negative) Urine RBC 14 H (0-5) /hpf Urine WBC 19 H (0-5) /hpf Urine Mucus Rare H (None) /hpf 12/28/23 12/28/23 Range/Units 04:12 07:25 Neutrophils # (1.3-7.7) k/uL Sodium 135 L (137-145) mmol/L Potassium 3.4 L (3.5-5.1) mmol/L BUN (7-17) mg/dL Glucose 134 H (74-99) mg/dL POC Glucose (mg/dL) 144 H (70-110) mg/dL Calcium 8.2 L (8.4-10.2) mg/dL Total Protein 6.0 L (6.3-8.2) g/dL Albumin 3.2 L (3.5-5.0) g/dL Urine Blood (Negative) Ur Leukocyte Esterase (Negative) Urine RBC (0-5) /hpf Urine WBC (0-5) /hpf Urine Mucus (None) /hpf Thrombosis Risk Factor Assmnt - Choose All That Apply Any of the Below Risk Factors Present?: Yes Each Factor Represents 1 point: Obesity (BMI >25) Other Risk Factors: Yes Other congenital or acquired thrombophilia - If yes, enter type in comment: No Thrombosis Risk Factor Assessment Total Risk Factor Score: 1 Thrombosis Risk Factor Assessment Level: Low Risk Assessment and Plan Assessment: 1. Pyelonephritis; patient has been placed on IV antibiotics in form of Rocephin; blood cultures and urine cultures obtained and pending; we will modify antibiotic therapy once culture results are available -- Urology on board and recommending to continue with current management -ID consulted for recommendations on antibiotic therapy 2. Recent lithotripsy; patient is status post stent placement which was inadvertently removed; abdominal ultrasound does not reveal any ureteral stones 3. Hypertension; losartan/hydrochlorothiazide 100-25 mg daily 4. Diabetes mellitus type 2; currently on metformin 500 mg daily 5. Asthma; not in exacerbation; continue with home inhaler therapy; Singulair 10 mg p.o. nightly 6. Anxiety/depression; patient remains on Xanax 0.5 mg daily as needed along with Viibryd 20 mg every morning and Abilify 5 mg p.o. nightly DVT prophylaxis; SCDs CODE STATUS; full code
[2023-12-28 17:20] LABS: Glucose,Whole Blood 156 mg/dL (70-110)
[2023-12-28] MEDS: ETODOLAC 300 MG CAPSULE PO PRN (17:27)
[2023-12-28] MEDS: ALPRAZolam 0.5 MG TAB PO PRN (17:27)
[2023-12-28 20:12] LABS: Glucose,Whole Blood 163 mg/dL (70-110)
--- NOTE | 2023-12-29 01:27 | US ---
EXAMINATION TYPE: US renals and bladder DATE OF EXAM: 12/28/2023 COMPARISON: Correlation with same-day KUB CLINICAL INDICATION: Female, 43 years old with history of pain; Left flank pain. UTI. history of left kidney stones. Lithotripsy 12/23/23 EXAM MEASUREMENTS: Right Kidney: 12.8 x 5.6 x 5.6 cm Left Kidney: 15.1 x 5.6 x 7.1 cm *Technical limitations due to patient's body habitus and overlying bowel gas Right Kidney: no evidence of hydronephrosis Left Kidney: probable stones visualized, largest = 1.1cm Bladder: not fully distended Bilateral Jets seen: no Bladder appears grossly unremarkable as seen, not fully distended. IMPRESSION: 1. No hydronephrosis demonstrated on either side. 2. More than one shadowing left renal calculus is seen, largest 11.4 mm. 3. Bladder appears grossly unremarkable as seen, not fully distended.
[2023-12-29 07:05] LABS: Glucose,Whole Blood 106 mg/dL (70-110)
--- NOTE | 2023-12-29 07:48 | P.CONS ---
History of Present Illness - Reason for Consult Consult date: 12/28/23 Acute pyelonephritis Requesting physician: iMc Rg - Chief Complaint Fever and hematuria x 1 days - History of Present Illness Patient is a 43-year-old female with a past medical history significant for hypertension sleep apnea asthma and this patient who recently did have left ureteroscopy with laser lithotripsy and stent placement by Dr. Yung on 12/23/2023, the patient stent inadvertently got pulled out on 12/26/2023 patient mentioning she did have some hematuria and burning of urine following the incident and subsequently presented to the ER at [facility] last evening for evaluation of fever that started the day of presentation to the hospital patient did have a fever of 102.8 F patient was mildly tachycardic but not hypotensive or hypoxic and no need for supplemental oxygen patient did have a white count of 10.3 with a left shift creatinine 0.64 liver enzymes are normal, the patient did have a positive UA blood cultures obtained which are currently pending patient did have a renal ultrasound no hydronephrosis demonstrated more than 1 shadowing left renal calculus largest 11.4 mm bladder appears unremarkable infectious disease was consulted for further management of antibiotic therapy Review of Systems Positive point and negatives has been mentioned in the HPI, complete review of systems was performed and all other systems are negative Past Medical History Past Medical History: Asthma, Hypertension, Sleep Apnea/CPAP/BIPAP Additional Past Medical History / Comment(s): Kidney stones, pre diabetic History of Any Multi-Drug Resistant Organisms: None Reported Past Surgical History: Bariatric Surgery Additional Past Surgical History / Comment(s): gastric sleeve 2013, transurethral lithotripsy 12/23/23 Past Psychological History: Anxiety, Depression Smoking Status: Never smoker Past Alcohol Use History: None Reported, Rare Past Drug Use History: None Reported Medications and Allergies Home Medications Medication Instructions Recorded Confirmed Type ALPRAZolam [Xanax] 0.5 mg PO DAILY PRN 11/21/23 12/27/23 History Albuterol Inhaler [Ventolin Hfa 1 - 2 puff INHALATION Q6H PRN 11/21/23 12/27/23 History Inhaler] Celecoxib [CeleBREX] 200 mg PO DAILY PRN 11/21/23 12/27/23 History Losartan/Hydrochlorothiazide 1 tab PO DAILY 11/21/23 12/27/23 History [Hyzaar 100-25 Tablet] Vilazodone HCl [Viibryd] 20 mg PO DAILY 11/21/23 12/27/23 History metFORMIN HCL ER [Glucophage XR] 500 mg PO W/SUPPER 11/21/23 12/27/23 History tiZANidine HCL [Zanaflex] 4 mg PO DAILY PRN 11/21/23 12/27/23 History cycloSPORINE 0.05% OPHTH SOLN 1 applicator BOTH EYES Q12H PRN 11/25/23 12/27/23 History [Restasis] ARIPiprazole [Abilify] 5 mg PO HS 12/22/23 12/27/23 History Montelukast [Singulair] 10 mg PO HS 12/22/23 12/27/23 History HYDROcodone/APAP 5-325MG [[place] 1 tab PO Q6HR PRN 3 Days #12 tab 12/23/23 12/27/23 Rx 5-325] Ketorolac [Toradol] 10 mg PO Q6HR PRN #10 tab 12/23/23 12/27/23 Rx Acetaminophen Tab [Tylenol] 650 mg PO Q6HR PRN tab 12/30/23 Rx Ciprofloxacin HCl [Cipro] 750 mg PO Q12H 10 Days #20 tab 12/30/23 Rx Allergies Allergy/AdvReac Type Severity Reaction Status Date / Time perfume Allergy Dyspnea Verified 12/27/23 19:44 adhesive tape AdvReac Rash/Hives Verified 12/27/23 19:44 Physical Exam Vitals: Vital Signs Temp Pulse Pulse Pulse Resp BP BP 12/28/23 09:12 100.0 F H 12/28/23 07:26 99.1 F 93 18 12/28/23 04:42 100.4 F H 12/28/23 02:00 98.7 F 85 18 130/82 12/27/23 22:30 85 12/27/23 22:17 99.4 F 88 20 131/78 12/27/23 21:57 98.6 F 80 18 129/68 12/27/23 19:27 101.4 F H 90 18 129/64 12/27/23 17:22 102.8 F H 98 18 166/77 BP Pulse Ox 12/28/23 09:12 12/28/23 07:26 136/76 94 L 12/28/23 04:42 12/28/23 02:00 92 L 12/27/23 22:30 12/27/23 22:17 92 L 12/27/23 21:57 93 L 12/27/23 19:27 93 L 12/27/23 17:22 97 Intake and Output 12/27/23 12/28/23 12/28/23 22:59 06:59 14:59 Other: # Voids 1 Weight 133.81 kg GENERAL DESCRIPTION: Middle-aged female lying in bed, no distress. No tachypnea or accessory muscle of respiration use. HEENT: Shows Pallor , no scleral icterus. Oral mucous membrane is dry. No pharyngeal erythema or thrush NECK: Trachea central, no thyromegaly. LUNGS: Unlabored breathing. Clear to auscultation anteriorly. No wheeze or crackle. HEART: S1, S2, regular rate and rhythm. No loud murmur ABDOMEN: Soft, no tenderness , guarding or rigidity, no organomegaly EXTREMITIES: No edema of feet. SKIN: No rash, no masses palpable. NEUROLOGICAL: The patient is awake, alert, oriented x3, mood and affect normal. Results CBC & Chem 7: 12/29/23 05:51 12/29/23 05:51 Labs: Abnormal Lab Results - Last 24 Hours (Table) 12/27/23 12/27/23 12/27/23 Range/Units 18:05 18:05 18:05 Neutrophils # 8.1 H (1.3-7.7) k/uL Sodium 134 L (137-145) mmol/L Potassium (3.5-5.1) mmol/L BUN 18 H (7-17) mg/dL Glucose 110 H (74-99) mg/dL POC Glucose (mg/dL) (70-110) mg/dL Calcium (8.4-10.2) mg/dL Total Protein (6.3-8.2) g/dL Albumin (3.5-5.0) g/dL Urine Blood Moderate H (Negative) Ur Leukocyte Esterase Moderate H (Negative) Urine RBC 14 H (0-5) /hpf Urine WBC 19 H (0-5) /hpf Urine Mucus Rare H (None) /hpf 12/28/23 12/28/23 12/28/23 Range/Units 04:12 07:25 12:09 Neutrophils # (1.3-7.7) k/uL Sodium 135 L (137-145) mmol/L Potassium 3.4 L (3.5-5.1) mmol/L BUN (7-17) mg/dL Glucose 134 H (74-99) mg/dL POC Glucose (mg/dL) 144 H 154 H (70-110) mg/dL Calcium 8.2 L (8.4-10.2) mg/dL Total Protein 6.0 L (6.3-8.2) g/dL Albumin 3.2 L (3.5-5.0) g/dL Urine Blood (Negative) Ur Leukocyte Esterase (Negative) Urine RBC (0-5) /hpf Urine WBC (0-5) /hpf Urine Mucus (None) /hpf Assessment and Plan (1) Fever Status: Acute Code(s): R50.9 - FEVER, UNSPECIFIED SNOMED Code(s): 877446525 (2) Pyelonephritis Status: Acute Code(s): N12 - TUBULO-INTERSTITIAL NEPHRITIS, NOT SPCF ACUTE OR CHRONIC SNOMED Code(s): 36389736 (3) Urinary tract infection Status: Acute Code(s): N39.0 - URINARY TRACT INFECTION, SITE NOT SPECIFIED SNOMED Code(s): 22043109 Plan: 1patient presented hospital with a fever in this patient who recently did have left ureteroscopy with laser lithotripsy and stent placement which subsequently had pulled out now with some hematuria urinary symptoms likely related to the left-sided pyonephritis likely from enteric gram-negative pathogen 2-we will cover the patient with Rocephin 2 g daily while waiting for the culture to finalize Question concern answered We will follow on clinical condition and cultures to further adjust medication if needed Thank you for this consultation we will follow the patient along with you Dictation was produced using [employer] dictation software. please excuse any grammatical, word or spelling errors. Time with Patient: Greater than 30
[2023-12-29 10:35] LABS: Basophils # (A) 0.03 X 10*3/uL (0.00-0.10); Basophils % (A) 0.3 %; Eosinophils # (A) 0.22 X 10*3/uL (0.04-0.35); Eosinophils % (A) 2.5 %; HGB 12.1 g/dL (12.0-15.0); Lymphocytes % (A) 36.1 %; MCH 29.1 pg (27.0-32.0); MCHC 32.7 g/dL (32.0-37.0); MCV 88.9 FL (80.0-97.0); Mean Platelet Volume 9.3 FL (9.5-12.2); Monocytes # (A) 1.06 X 10*3/uL (0.20-1.00); NRBC Per 100 WBC 0 X 10*3/uL (0.00-0.01); Neutrophils % (A) 48.4 %; Platelet Count 205 X 10*3/uL (140-440); RBC 4.16 X 10*6/uL (4.10-5.20); RDW 14.2 % (11.5-14.5); WBC 8.87 X 10*3/uL (4.50-10.00)
[2023-12-29 10:36] LABS: Blood Urea Nitrogen 8.7 mg/dL (9.0-27.0); Calcium 8.4 mg/dL (8.7-10.3); Carbon Dioxide 27.4 mmol/L (21.6-31.8); Chloride 102 mmol/L (96-109); Glucose 113 mg/dL (70-110); Potassium 3.7 mmol/L (3.5-5.5); Sodium 139 mmol/L (135-145)
[2023-12-29] MEDS: SENNOSIDES 8.6 MG TAB PO SCH (11:26)
[2023-12-29 11:54] LABS: Glucose,Whole Blood 83 mg/dL (70-110)
--- NOTE | 2023-12-29 12:36 | P.PN ---
Subjective Progress Note Date: 12/29/23 Principal diagnosis: Reason for follow-up is left-sided pyonephritis Patient is a 43-year-old female with a past medical history significant for hypertension sleep apnea asthma and this patient who recently did have left ureteroscopy with laser lithotripsy and stent placement by Dr. Yung on 12/23/2023, presenting to the hospital with fever and chills and left flank pain has been diagnosed with UTI/pyelonephritis. On today's evaluation that is 12/29/2023,the patient did have resolution of her fever and is afebrile this morning, patient is breathing comfortably on room air, the patient denies chest pain shortness of breath and no significant cough, patient left flank pain has improved no vomiting or diarrhea. Patient white count is 8.87 creatinine 0.6 urine culture with gram-negative bacilli blood culture pending Objective - Vital Signs Vital signs: Vital Signs Temp 98.7 F 12/29/23 07:05 Pulse 67 12/29/23 07:05 Resp 17 12/29/23 07:05 BP 127/75 12/29/23 07:05 Pulse Ox 95 12/29/23 07:05 FiO2 Intake & Output 12/28/23 12/29/23 12/29/23 18:59 06:59 18:59 Other: # Voids 4 3 - Exam GENERAL DESCRIPTION: Middle-aged female lying in bed in no distress RESPIRATORY SYSTEM: Unlabored breathing , decreased breath sounds at bases HEART: S1 S2 regular rate and rhythm , ABDOMEN: Soft , no tenderness EXTREMITIES: No edema feet - Labs CBC & Chem 7: 12/29/23 05:51 12/29/23 05:51 Labs: Abnormal Lab Results - Last 24 Hours (Table) 12/28/23 12/28/23 12/29/23 Range/Units 17:18 20:10 05:51 Hct 37.0 L (37.2-46.3) % MPV 9.3 L (9.5-12.2) FL Immature Gran # 0.06 H (0.00-0.04) X 10*3/uL Monocytes # 1.06 H (0.20-1.00) X 10*3/uL BUN (9.0-27.0) mg/dL Glucose (70-110) mg/dL POC Glucose (mg/dL) 156 H 163 H (70-110) mg/dL Calcium (8.7-10.3) mg/dL 12/29/23 Range/Units 05:51 Hct (37.2-46.3) % MPV (9.5-12.2) FL Immature Gran # (0.00-0.04) X 10*3/uL Monocytes # (0.20-1.00) X 10*3/uL BUN 8.7 L (9.0-27.0) mg/dL Glucose 113 H (70-110) mg/dL POC Glucose (mg/dL) (70-110) mg/dL Calcium 8.4 L (8.7-10.3) mg/dL Microbiology - Last 24 Hours (Table) 12/27/23 18:05 Urine Culture - Preliminary Urine,Clean Catch Gram Neg Bacilli 12/27/23 18:05 Blood Culture - Preliminary Blood Assessment and Plan (1) Pyelonephritis Current Visit: Yes Status: Acute Code(s): N12 - TUBULO-INTERSTITIAL NEPHRIT IS, NOT SPCF ACUTE OR CHRONIC SNOMED Code(s): 70598320 Plan: 1patient presented hospital with a fever in this patient who recently did have left ureteroscopy with laser lithotripsy and stent placement which subsequently had pulled out now with some hematuria urinary symptoms likely related to the left-sided pyonephritis likely from enteric gram-negative pathogen 2-patient urine is growing gram-negative bacilli with ID sensitivities pending did have improvement in the fever pattern with Rocephin to continue while waiting for the culture to finalize Dictation was produced using [employer] dictation software. please excuse any grammatical, word or spelling errors. Time with Patient: Less than 30
[2023-12-29] MEDS: FUROSEMIDE 10 MG/ML 4 ML VIAL IV STA (12:56)
[2023-12-29 17:16] LABS: Glucose,Whole Blood 100 mg/dL (70-110)
--- NOTE | 2023-12-29 20:16 | P.PN ---
Subjective Progress Note Date: 12/29/23 No acute overnight event, denies any flank pain this a.m. urine culture growing gram-negative bacilli Objective - Vital Signs Vital signs: Vital Signs Temp 98.7 F 12/29/23 19:28 Pulse 80 12/29/23 19:28 Resp 18 12/29/23 19:28 BP 130/72 12/29/23 19:28 Pulse Ox 95 12/29/23 19:28 FiO2 Intake & Output 12/29/23 12/29/23 12/30/23 06:59 18:59 06:59 Other: # Voids 3 - Constitutional General appearance: Present: no acute distress - Psychiatric Psychiatric: Present: A&O x's 3 - Labs CBC & Chem 7: 12/29/23 05:51 12/29/23 05:51 Labs: Abnormal Lab Results - Last 24 Hours (Table) 12/29/23 12/29/23 Range/Units 05:51 05:51 Hct 37.0 L (37.2-46.3) % MPV 9.3 L (9.5-12.2) FL Immature Gran # 0.06 H (0.00-0.04) X 10*3/uL Monocytes # 1.06 H (0.20-1.00) X 10*3/uL BUN 8.7 L (9.0-27.0) mg/dL Glucose 113 H (70-110) mg/dL Calcium 8.4 L (8.7-10.3) mg/dL Microbiology - Last 24 Hours (Table) 12/27/23 18:20 Blood Culture - Preliminary Blood 12/27/23 18:05 Urine Culture - Preliminary Urine,Clean Catch Gram Neg Bacilli 12/27/23 18:05 Blood Culture - Preliminary Blood Assessment and Plan Assessment: Status post left-sided ureteroscopy with holmium laser with stent exchange on 12/22 , stent accidentally removed by the patient on December 25 presented back with fever, urine cultures growing gram-negative bacilli. She has been afebrile this morning. -From urology standpoint she can be discharged once culture is finalized, infection disease is on board
[2023-12-29 20:25] LABS: Glucose,Whole Blood 136 mg/dL (70-110)
--- NOTE | 2023-12-30 03:30 | P.PN ---
Subjective Progress Note Date: 12/29/23 43-year-old female, history of hypertension, asthma, obesity, anxiety/depression presents to the ER for evaluation regards to fever. Fever headache back pain body aches body pain kidney pain. Patient underwent left ureteroscopy with laser lithotripsy and stent replacement on 12/23/2023; according to records patient's stent was inadvertently pulled out on 12/26/2023 In the ED patient had a KUB and abdominal ultrasound; KUB did not reveal any stones in ureter with possibility of a 3 mm stone remaining in the kidney; ultrasound is unremarkable for hydronephrosis Blood work completed in ED reveals a WBC of 10.3, hemoglobin of 14.4 and platelet count of 222, sodium 134, potassium 3.9, BUNs/creatinine of 18/0.64, UA is positive for blood, leukocyte esterase and WBCs -- Patient has been evaluated by urology and is recommended admission for IV antibiotics for pyelonephritis 12/29/2023 Patient seen and evaluated in follow-up this morning with urology and infectious disease following. Patient is continued on antibiotics for pyelonephritis and preliminary culture showing gram-negative bacilli. Will await finalized cultures and discussed with infectious disease regarding discharge planning. P atient had a low-grade temp last night although was afebrile today. Patient was continued on large dose IV hydration and will discontinue as patient is eating and drinking with no difficulties. Patient is voiding and denies any dysuria at this time. Patient was evaluated by urology as patient recently had left ureteroscopy with stent and was accidentally pulled out. No plans for reinserting after evaluation of imaging. Awaiting finalized cultures to determine discharge planning. Review of systems: Constitutional: No reports of fatigue, fever, or chills Cardiovascular: No reports of chest pain or palpitations Respiratory: No reports of shortness of breath or cough GI: No reports of nausea, vomiting, or diarrhea : No reports of dysuria or retention Neurovascular: No reports of weakness or numbness All medications have been reviewed Physical exam: Gen: This is a 43-year-old female who is awake, alert and oriented x 3, well- developed, well-nourished, morbidly obese HEENT: Head is atraumatic, normocephalic. Pupils equal, round. Sclerae is anicteric. NECK: Supple. No JVD. No lymphadenopathy. No thyromegaly. LUNGS: Diminished breath sounds bilaterally otherwise clear to auscultation. No wheezes or rhonchi. No intercostal retractions. HEART: Regular rate and rhythm. No murmur. ABDOMEN: Soft. Obese. Bowel sounds are present. No masses. No tenderness. EXTREMITIES: No pedal edema. No calf tenderness. NEUROLOGICAL: Patient is awake, alert and oriented x3. Cranial nerves 2 through 12 are grossly intact. Assessment: 1. Pyelonephritis, urine cultures showing gram-negative bacilli 2. Recent lithotripsy; patient is status post stent placement which was inadvertently removed; abdominal ultrasound does not reveal any ureteral stones 3. Hypertension history 4. Diabetes mellitus type 2; will continue sliding scale with Accu-Cheks before meals and at bedtime 5. Asthma; not in exacerbation 6. Anxiety/depression history 7. Morbid obesity with a BMI 50.6 DVT prophylaxis; SCDs GI prophylaxis full code Plan: Patient is currently continued on antibiotics with infectious disease following. Gram-negative bacilli noted on the preliminary cultures and awaiting finalized cultures to determine discharge antibiotics. Urology has evaluated the patient with no plans of reinserting the stent, repeat imaging did not reveal any ureteral stones and patient is status post lithotripsy Monitor for any further fevers Encouraged to increase activity as tolerated Will follow-up on repeat labs Awaiting finalized culture to determine discharge antibiotics. Will discuss further with infectious disease once cultures have finalized. Possible discharge planning in the next 24 to 48 hours. The impression and plan of care has been dictated by Zoe Hollingsworth, Nurse Practitioner as directed. Dr. Maribell MD I have performed a history and examination and MDM of this patient, discussed the same with the dictator, and agree with the dictator's assessment and plan as written ,documented as a scribe. Based on total visit time, I have performed more than 50% of the visit. Objective - Vital Signs Vital signs: Vital Signs Temp 98.7 F 12/29/23 07:05 Pulse 67 12/29/23 07:05 Resp 17 12/29/23 07:05 BP 127/75 12/29/23 07:05 Pulse Ox 95 12/29/23 07:05 FiO2 Intake & Output 12/28/23 12/29/23 12/29/23 18:59 06:59 18:59 Other: # Voids 4 3 - Labs CBC & Chem 7: 12/29/23 05:51 12/29/23 05:51 Labs: Abnormal Lab Results - Last 24 Hours (Table) 12/28/23 12/28/23 12/28/23 Range/Units 12:09 17:18 20:10 POC Glucose (mg/dL) 154 H 156 H 163 H (70-110) mg/dL Microbiology - Last 24 Hours (Table) 12/27/23 18:05 Blood Culture - Preliminary Blood
[2023-12-30 07:38] LABS: Glucose,Whole Blood 111 mg/dL (70-110)
[2023-12-30 08:46] VITALS: RESP 16
--- NOTE | 2023-12-30 11:46 | P.PN ---
Subjective No acute overnight event, denies any flank pain this a.m. urine culture growing gram-negative bacilli. Denies any gross hematuria Objective - Vital Signs Vital signs: Vital Signs Temp 97.5 F L 12/30/23 07:34 Pulse 63 12/30/23 07:34 Resp 16 12/30/23 07:34 BP 137/72 12/30/23 07:34 Pulse Ox 94 L 12/30/23 07:34 FiO2 Intake & Output 12/29/23 12/30/23 12/30/23 18:59 06:59 18:59 Intake Total 290 Balance 290 Intake: Intake, IV Titration 50 Amount cefTRIAXone 2 gm In 50 Sodium Chloride 0.9% 50 ml @ 100 mls/hr IVPB Q24H [facility] Rx#:[id number] Oral 240 Other: # Voids 1 # Bowel Movements 1 - Constitutional General appearance: Present: no acute distress - Gastrointestinal General gastrointestinal: Present: soft. Absent: distended, tenderness - Labs CBC & Chem 7: 12/29/23 05:51 12/29/23 05:51 Labs: Abnormal Lab Results - Last 24 Hours (Table) 12/29/23 12/30/23 Range/Units 20:24 07:37 POC Glucose (mg/dL) 136 H 111 H (70-110) mg/dL Microbiology - Last 24 Hours (Table) 12/27/23 18:05 Blood Culture - Preliminary Blood 12/27/23 18:20 Blood Culture - Preliminary Blood 12/27/23 18:05 Urine Culture - Preliminary Urine,Clean Catch Gram Neg Bacilli Assessment and Plan Assessment: Status post left-sided ureteroscopy with holmium laser with stent exchange on 12/22 , stent accidentally removed by the patient on December 25 presented back with fever, urine cultures growing gram-negative bacilli. She has been afebrile this morning. -From urology standpoint she can be discharged once culture is finalized, infe ction disease is on board for final antibiotics recommendation
[2023-12-30 12:17] LABS: Glucose,Whole Blood 110 mg/dL (70-110)
[2023-12-30 12:36] VITALS: BP 146/79; PULSE 67; TEMP 97.6
[2023-12-30] MEDS: CEFEPIME 2 GM in SODIUM CHLORIDE 0.9% 100 ML IVPB STA (14:52)
--- NOTE | 2024-01-01 09:21 | CDI ---
Documentation Clarification Form Date: 01/01/2024 08:29:12 AM From: Perla Zhang RN,CCDS Phone: [phone] Admit Date: 12/27/2023 09:03:00 PM Patient Name: Jovon Valle Visit Number: [id number] Discharge Date: 12/30/2023 04:10:00 PM ATTENTION: The Clinical Documentation Specialists (CDI) and [facility] Coding Staff appreciate your assistance in clarifying documentation. Please respond to the clarification below the line at the bottom and electronically sign. The CDI & [facility] Coding staff will review the response and follow-up if needed. Please note: Queries are made part of the Legal Health Record. If you have any questions, please contact the author of this message via ITS. Dr. Erik Yung 43-year-old female recently did have left ureteroscopy with laser lithotripsy and stent placement on 12/23/2023, the patient stent inadvertently got pulled out on 12/26/2023. Additional clarification is requested regarding the relationship, if any, that exists between the pyelonephritis and the procedure. History/Risk Factors: Asthma, Hypertension, Kidney stones Clinical Indicators: 43-year-old female presented to the ER for evaluation of fever that started the day of presentation to the hospital. Urine cultures growing gram-negative bacilli. 12/27 KUB: Interval removal of the left double pigtail ureteral stent. Faintly seen 17 mm calculus overlying the lower pole of the left kidney. Possible additional 3 mm calculus just superior. 12/26 VS: 166/77 98 102.6 18 97 % RA, 129/64 90 18 101.4 93/5 RA 12/26 Labs: WBC 10.3 Neutrophils 8.1 Na+134; UA Urine blood-Moderate, Ur Leukocyte Esterase-Moderate 12/26 Urine Culture: Pseudomonas aeruginosa 12/26 Surgical-Consult note: Probable UTI post ureteroscopic stone removal left. This should be treated as a pyelonephritis. Treatment: Cefepime 2 GM IVPB once 12/29 Rocephin 2 GM IVPB Q 24 HRS 12/26-12/28 .9 NS 1,000 ML Bolus 12/26 What relationship, if any, exists between the pyelonephritis and procedure with stent inadvertently pulled out on 12/26/2023. [ X ] Pyelonephritis is a complication of surgical procedure [ ] Pyelonephritis is an expected outcome of the surgical procedure [ ] Pyelonephritis is related to patients co-morbid condition(s) of & not a complication of the procedure [ ] Other please specify ____ [ ] Unable to determine (Template Last Revised: October 2020) MTDD
--- NOTE | 2024-01-02 12:25 | CDI ---
Documentation Clarification Form Date: 01/02/2024 12:02:48 PM From: Citlali Lopez RN, CCDS Phone: [phone] Admit Date: 12/27/2023 09:03:00 PM Patient Name: Jovon Valle Visit Number: [id number] Discharge Date: 12/30/2023 04:10:00 PM ATTENTION: The Clinical Documentation Specialists (CDI) and [facility] Coding Staff appreciate your assistance in clarifying documentation. Please respond to the clarification below the line at the bottom and electronically sign. The CDI & [facility] Coding staff will review the response and follow-up if needed. Please note: Queries are made part of the Legal Health Record. If you have any questions, please contact the author of this message via ITS. DONALDO Cobos Your patient received IV Lasix. Please clarify what condition/diagnosis was being treated. History/Risk Factors: HTN, asthma, obesity and depression. Recent left ureteroscopy with laser lithotripsy and stent placement on 12/22. The stent was inadvertently pulled out on 12/25. Presented to the ED with fever. Found to have pyelonephritis. Clinical indicators: 12/26 CXR: Mild cardiomegaly and congestion. Correlate for mild CHF. 12/28 IM: "Patient had a low-grade temp last night although was afebrile today. Patient was continued on large dose IV hydration and will discontinue as patient is eating and drinking with no difficulties." Treatment: IV Lasix 40mg x1 on 12/28 What diagnosis are you treating with IV Lasix? [ ] Acute pulmonary edema [ ] No additional diagnosis [ x ] Other, please specify mild volume overload due to IV fluids [ ] Unable to determine MTDD
--- NOTE | 2024-01-05 05:03 | P.DS ---
Providers Date of admission: 12/27/23 21:03 Expected date of discharge: 12/30/23 Attending physician: Jt Quinonez Consults: 12/27/23 21:03 Consult Physician Routine Consulting Provider: Erik Yung Consult Reason/Comments: known Do you want consulting provider notified?: Yes 12/28/23 11:47 Consult Physician Routine Consulting Provider: Juventino Calderon Consult Reason/Comments: Ac Pyelonephritis Do you want consulting provider notified?: Yes Primary care physician: Anderson aPrker Hospital Course: Final diagnosis -Pyelonephritis, urine cultures showing Pseudomonas with sensitivities -Recent lithotripsy; patient is status post stent placement which was inadvertently removed; abdominal ultrasound does not reveal any ureteral stones -Hypertension history -Mild fluid volume overload, secondary to IV fluids, improved after a dose of Lasix -Diabetes mellitus type 2; will continue sliding scale with Accu-Cheks before meals and at bedtime -Asthma; not in exacerbation -Anxiety/depression history -Morbid obesity with a BMI 50.6 -DVT prophylaxis; SCDs -GI prophylaxis -full code Discharge disposition Patient is being discharged in a stable condition with guarded prognosis to home. Patient will follow-up with Dr. Parker in the outpatient setting upon discharge. Patient is to continue with current antibiotics and close outpatient follow-up with urology and infectious disease as scheduled. Total time taken is greater than 35 minutes. Hospital course This is a 43-year-old female who was recently admitted status post recent lithotripsy with stent placement being closely monitored. Inadvertently the stent was removed by patient and had follow-up ultrasound not revealing any further ureteral stones. Patient evaluated by urology with no plans of reinse rting the stent at this time recommending outpatient follow-up. Patient having some fevers with concerns of pyelonephritis. Urine cultures finalized showing Pseudomonas with sensitivities and was maintained on IV antibiotics with infectious disease following. Patient will continue oral antibiotics on discharge and close outpatient follow-up. Please refer to other consultation notes for further HPI. Patient has been cleared by consultations. Patient reports to feeling well and no further fevers noted. Currently no reports of chest pain, shortness of breath, or palpitations. Patient is afebrile. No reports of nausea or vomiting and patient is tolerating diet. Patient will be discharged home today. Physical exam: Gen: This is a 43-year-old female who is awake, alert and oriented x 3, well- developed, well-nourished, morbidly obese HEENT: Head is atraumatic, normocephalic. Pupils equal, round. Sclerae is anicteric. NECK: Supple. No JVD. No lymphadenopathy. No thyromegaly. LUNGS: Clear to auscultation. No wheezes or rhonchi. No intercostal retractions. HEART: Regular rate and rhythm. No murmur. ABDOMEN: Soft. Obese bowel sounds are present. No masses. No tenderness. EXTREMITIES: No pedal edema. No calf tenderness. Chronic generalized edema, nonpitting to bilateral lower extremities NEUROLOGICAL: Patient is awake, alert and oriented x3. Cranial nerves 2 through 12 are grossly intact. Please refer to medication reconciliation sheet for a list of medications. The impression and plan of care has been dictated by Zoe Hollingsworth, Nurse Practitioner as directed. Dr. Maribell MD I have performed a history and examination and MDM of this patient, discussed the same with the dictator, and agree with the dictator's assessment and plan as written ,documented as a scribe. Based on total visit time, I have performed more than 50% of the visit. Patient Condition at Discharge: Good Plan - Discharge Summary Discharge Rx Participant: No New Discharge Prescriptions: New Acetaminophen Tab [Tylenol] 650 mg PO Q6HR PRN tab PRN Reason: Mild Pain Or Fever > 100.5 Ciprofloxacin HCl [Cipro] 750 mg PO Q12H 10 Days #20 tab Continue metFORMIN HCL ER [Glucophage XR] 500 mg PO W/SUPPER Vilazodone HCl [Viibryd] 20 mg PO DAILY ARIPiprazole [Abilify] 5 mg PO HS Celecoxib [CeleBREX] 200 mg PO DAILY PRN PRN Reason: Pain Albuterol Inhaler [Ventolin Hfa Inhaler] 1 - 2 puff INHALATION Q6H PRN PRN Reason: Shortness Of Breath ALPRAZolam [Xanax] 0.5 mg PO DAILY PRN PRN Reason: Anxiety tiZANidine HCL [Zanaflex] 4 mg PO DAILY PRN PRN Reason: Muscle Spasm Losartan/Hydrochlorothiazide [Hyzaar 100-25 Tablet] 1 tab PO DAILY cycloSPORINE 0.05% OPHTH SOLN [Restasis] 1 applicator BOTH EYES Q12H PRN PRN Reason: Dry Eye(S) Montelukast [Singulair] 10 mg PO HS HYDROcodone/APAP 5-325MG [Webb 5-325] 1 tab PO Q6HR PRN 3 Days #12 tab PRN Reason: Pain Ketorolac [Toradol] 10 mg PO Q6HR PRN #10 tab PRN Reason: Pain Discontinued Cephalexin [Keflex] 500 mg PO Q8HR #15 cap Discharge Medication List ALPRAZolam [Xanax] 0.5 mg PO DAILY PRN 11/21/23 [History] Albuterol Inhaler [Ventolin Hfa Inhaler] 1 - 2 puff INHALATION Q6H PRN 11/21/23 [History] Celecoxib [CeleBREX] 200 mg PO DAILY PRN 11/21/23 [History] Losartan/Hydrochlorothiazide [Hyzaar 100-25 Tablet] 1 tab PO DAILY 11/21/23 [History] Vilazodone HCl [Viibryd] 20 mg PO DAILY 11/21/23 [History] metFORMIN HCL ER [Glucophage XR] 500 mg PO W/SUPPER 11/21/23 [History] tiZANidine HCL [Zanaflex] 4 mg PO DAILY PRN 11/21/23 [History] cycloSPORINE 0.05% OPHTH SOLN [Restasis] 1 applicator BOTH EYES Q12H PRN 11/25/23 [History] ARIPiprazole [Abilify] 5 mg PO HS 12/22/23 [History] Montelukast [Singulair] 10 mg PO HS 12/22/23 [History] HYDROcodone/APAP 5-325MG [Webb 5-325] 1 tab PO Q6HR PRN 3 Days #12 tab 12/23/23 [Rx] Ketorolac [Toradol] 10 mg PO Q6HR PRN #10 tab 12/23/23 [Rx] Acetaminophen Tab [Tylenol] 650 mg PO Q6HR PRN tab 12/30/23 [Rx] Ciprofloxacin HCl [Cipro] 750 mg PO Q12H 10 Days #20 tab 12/30/23 [Rx] Follow up Appointment(s)/Referral(s): Erik Yung MD [STAFF PHYSICIAN] - 01/05/24 3:00 pm Anderson Parker DO [Primary Care Provider] - 01/07/24 11:00 am (appointment w/ Bryce WANG) Juventino Calderon MD [STAFF PHYSICIAN] - 1 Week (Please call the office to schedule a follow up appointment. ) Activity/Diet/Wound Care/Special Instructions: Activity limited until follow-up Follow-up with your care provider on discharge Follow-up with urology outpatient Continue taking antibiotics until finished Monitor for any further fevers and treat with Tylenol Encourage fluids Follow-up infectious disease outpatient Discharge Disposition: HOME SELF-CARE
--- NOTE | 2024-01-06 15:43 | P.PN ---
Subjective Progress Note Date: 12/30/23 Principal diagnosis: Reason for follow-up is left-sided pyonephritis Patient is a 43-year-old female with a past medical history significant for hypertension sleep apnea asthma and this patient who recently did have left ureteroscopy with laser lithotripsy and stent placement by Dr. Yung on 12/23/2023, presenting to the hospital with fever and chills and left flank pain has been diagnosed with UTI/pyelonephritis. On today's evaluation that is 12/30/2023,the patient remains to be afebrile, patient is on room air not requiring supplemental oxygen and denies any sh ortness of breath no chest pain or cough.Patient denies having any nausea or vomiting, flank pain has improved urinary symptoms improved and no diarrhea. No new labs has been obtained today urine culture with Pseudomonas Cipro sensitive Objective - Vital Signs Vital signs: Vital Signs Temp 97.6 F 12/30/23 12:14 Pulse 67 12/30/23 12:14 Resp 16 12/30/23 12:14 BP 146/79 12/30/23 12:14 Pulse Ox 96 12/30/23 12:14 FiO2 Intake & Output 12/29/23 12/30/23 12/30/23 18:59 06:59 18:59 Intake Total 290 Balance 290 Intake: Intake, IV Titration 50 Amount cefTRIAXone 2 gm In 50 Sodium Chloride 0.9% 50 ml @ 100 mls/hr IVPB Q24H [facility] Rx#:[id number] Oral 240 Other: # Voids 1 # Bowel Movements 1 - Exam GENERAL DESCRIPTION: Middle-aged female lying in bed in no distress RESPIRATORY SYSTEM: Unlabored breathing , decreased breath sounds at bases HEART: S1 S2 regular rate and rhythm , ABDOMEN: Soft , no tenderness EXTREMITIES: No edema feet - Labs CBC & Chem 7: 12/29/23 05:51 12/29/23 05:51 Labs: Abnormal Lab Results - Last 24 Hours (Table) 12/29/23 12/30/23 Range/Units 20:24 07:37 POC Glucose (mg/dL) 136 H 111 H (70-110) mg/dL Microbiology - Last 24 Hours (Table) 12/27/23 18:20 Blood Culture - Preliminary Blood 12/27/23 18:05 Urine Culture - Final Urine,Clean Catch Pseudomonas aeruginosa 12/27/23 18:05 Blood Culture - Preliminary Blood Assessment and Plan (1) Pyelonephritis Status: Acute Code(s): N12 - TUBULO-INTERSTITIAL NEPHRITIS, NOT SPCF ACUTE OR CHRONIC SNOMED Code(s): 26478885 Plan: 1patient presented hospital with a fever in this patient who recently did have left ureteroscopy with laser lithotripsy and stent placement which subsequently had pulled out now with some hematuria urinary symptoms likely related to the left-sided pyonephritis likely from enteric gram-negative pathogen 2-patient urine has been finalized with Pseudomonas aeruginosa discontinue Rocephin we will give her a dose of cefepime afterwards patient will finish therapy with oral Cipro x 12 days discussed with the admitting team working on discharge Dictation was produced using [employer] dictation software. please excuse any grammatical, word or spelling errors. Time with Patient: Less than 30
== END 2023-12-30 16:10 | disposition home or self-care (01) | DRG 699 ==
LOC: EC 17:09 → 5NMEDONC 21:03
PROVIDERS: ADMIT Hospitalist; ATTEND Hospitalist
DX: N99.89 Other postprocedural complications and disorders of genitourinary system (principal); N12 Tubulo-interstitial nephritis, not specified as acute or chronic; J45.909 Unspecified asthma, uncomplicated; I10 Essential (primary) hypertension; R31.9 Hematuria, unspecified; G47.30 Sleep apnea, unspecified; F41.9 Anxiety disorder, unspecified; F32.A Depression, unspecified; E11.9 Type 2 diabetes mellitus without complications; Z98.84 Bariatric surgery status; Z87.442 Personal history of urinary calculi; Z79.899 Other long term (current) drug therapy; Z79.84 Long term (current) use of oral hypoglycemic drugs; Z79.1 Long term (current) use of non-steroidal anti-inflammatories (NSAID)
CPT/HCPCS: 36415; 71045; 74018; 76770; 80048; 80053; 81001; 83605; 83735; 83880; 84100; 84484; 85025; 87040; 87077; 87086; 87186; 96361; 96374; 96375; 99285

== ENCOUNTER → 2024-01-31 | Outpatient (CLI) | payer BC ==
--- NOTE | 2024-02-05 09:14 | XR ---
EXAMINATION TYPE: XR KUB DATE OF EXAM: 01/31/2024 9:44 AM CLINICAL INDICATION:Female, 43 years old with history of n20.0 calculus kidney; COMPARISON: 12/28/2023. 10/03/2023 TECHNIQUE: One radiographic view of the abdomen was obtained. FINDINGS: The bowel gas pattern is nonspecific without dilated loops of small or large bowel. There i s no evidence for organomegaly or pneumoperitoneum. The osseous structures are intact. Left renal c alculi measuring up to 7 mm. Left ureteral calculus not definitively visualized on prior to 10/21/2023 CT. Fecal material and gas are demonstrated throughout the colon and rectum. Degeneration changes o f the hips with osteophyte formation of the superior acetabulum and joint space narrowing. Mild degen eration changes with osteophyte formation of the spine. IMPRESSION: 1. Left renal calculi measuring up to 8 mm. 2. Nonspecific bowel gas pattern without radiographic evidence for acute process. 3. Mild bilateral hip osteoporosis. 4. Mild spine degeneration changes.
== END | disposition home or self-care (01) ==
LOC: RADXRMAIN 09:33
PROVIDERS: ATTEND Urology
DX: N20.0 Calculus of kidney (principal); M81.0 Age-related osteoporosis without current pathological fracture; K31.89 Other diseases of stomach and duodenum
CPT/HCPCS: 74018

== ENCOUNTER 2025-03-23 08:24 | Day surgery (SDC) | payer BC ==
[2025-03-21 12:39] VITALS: BMI 68.6
[2025-03-23 09:13] VITALS: TEMP 97.3
[2025-03-23 09:16] LABS: Glucose,Whole Blood 107 mg/dL (70-110)
[2025-03-23] MEDS: IV FLUID CONTINUATION 1,000 ML IV ONE (09:17)
[2025-03-23] MEDS: LACTATED RINGERS 1,000 ML IV SCH (09:17)
[2025-03-23] MEDS: ONDANSETRON 4 MG/2 ML VIAL IVP STA (09:19)
[2025-03-23] MEDS: DEXAMETHASONE SOD PHOSPHATE 4 MG/ML 1 ML VIAL IVP STA (09:19)
[2025-03-23] MEDS ORDERED: PROPOFOL 10 MG/ML 20 ML VIAL IV ONE (09:23)
--- NOTE | 2025-03-23 09:41 | P.PCN ---
Date of Procedure: 03/23/25 Procedure(s) Performed: BRIEF HISTORY: Patient is a 44-year-old pleasant white female scheduled for an elective colonoscopy as a part of screening for colon cancer/positive Cologuard. PROCEDURE PERFORMED: Colonoscopy with snare polypectomy. PREOPERATIVE DIAGNOSIS: Screening for colon cancer/positive Cologuard. IV sedation per Anesthesia. PROCEDURE: After informed consent was obtained, the patient, was brought into the endoscopy unit. IV sedation was administered by Anesthesia under continuous monitoring. Digital rectal examination was normal. Initially the Olympus CF-160 flexible video colonoscope was then inserted in the rectum, gradually advanced into the cecum without any difficulty. Careful examination was performed as the scope was gradually being withdrawn. Ileocecal valve and the appendiceal orifice were visualized and appeared normal. Prep was excellent. Mucosa of the cecum, ascending colon, appeared normal. The transverse colon there was a 6 mm polyp that was removed by cold snare polypectomy. Rest of the transverse colon, descending colon, appeared normal. The sigmoid colon there is a 5 mm and 6 mm polyp removed by cold snare polypectomy. In the proximal rectum there was a 5 mm and 1 cm polyp removed by cold and hot snare polypectomy. Retroflexion was performed in the rectum and no lesions were seen. The patient tolerated the procedure well. IMPRESSION: 6 mm transverse colon polyp status post cold snare polypectomy 5 mm and 6 mm sigmoid colon polyp status post cold snare polypectomy 5 mm and 1 cm proximal rectal polyp status post cold and hot snare polypectomy respectively RECOMMENDATIONS: Findings of this examination were discussed with the patient as well as her family. She was advised to follow-up with the biopsy results. If the biopsy reveals adenoma she can have repeat colonoscopy in 3 years..
[2025-03-23 09:47] VITALS: RESP 16
[2025-03-23 10:03] VITALS: BP 119/66; PULSE 72
== END 2025-03-23 10:15 | disposition home or self-care (01) ==
LOC: ORWHC2ENDO 08:24
PROVIDERS: ATTEND Internal Medicine Gastroenterology
DX: D12.3 Benign neoplasm of transverse colon (principal); D12.5 Benign neoplasm of sigmoid colon; D12.8 Benign neoplasm of rectum; J45.909 Unspecified asthma, uncomplicated; G47.33 Obstructive sleep apnea (adult) (pediatric); I10 Essential (primary) hypertension; F41.9 Anxiety disorder, unspecified; F32.A Depression, unspecified; L23.1 Allergic contact dermatitis due to adhesives; L23.2 Allergic contact dermatitis due to cosmetics; Z99.89 Dependence on other enabling machines and devices; Z79.51 Long term (current) use of inhaled steroids; Z79.899 Other long term (current) drug therapy
CPT/HCPCS: 45385; J1100; J2405; J2704; 88305